=== PATIENT | male | born 1940 | race Caucasian/White ===

== ENCOUNTER 2016-12-28 07:08 | Emergency (ER) | payer MEDICARE ==
[~2016-12-28] VITALS: Ht 182.9 cm; Wt 121.6 kg
[~2016-12-28 07:08] MED LIST: ALPR1TAB6 PO; ASPI-630 PO; GLEEVEC400 MG PO; IBUP200C PO; IMAT100T PO; OLME40TA12 PO; OMEP20TA8 PO; SIMV20TA3 PO; SITA1TAB7 PO; TRAM50TA PO
[2016-12-28 07:26] VITALS: BP 161/85
--- NOTE | 2016-12-28 07:27 | PHYS DOC ---
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 Patient states the pain is intermittent. Patient denies the pain radiating to bilateral lower extremities. Denies any loss of bowel/bladder function. Denies any urgency frequency or dysuria. Patient denies falling. Patient states the pain is worse on movement. Review of Systems Review of Systems Constitutional: Denies fever or chills [] Eyes: Denies change in visual acuity, redness, or eye pain [] HENT: Denies nasal congestion or sore throat [] Respiratory: Denies cough or shortness of breath [] Cardiovascular: No additional information not addressed in HPI [] GI: Denies abdominal pain, nausea, vomiting, bloody stools or diarrhea [] : Denies dysuria or hematuria [] Musculoskeletal: Right low back pain Integument: Denies rash or skin lesions [] Neurologic: Denies headache, focal weakness or sensory changes [] Endocrine: Denies polyuria or polydipsia [] Allergies Allergies Allergies Coded Allergies Type Severity Reaction Last Updated Verified acetaminophen Allergy Intermediate 03/15/15 Yes Physical Exam Physical Exam Constitutional: Well developed, well nourished, no acute distress, non-toxic appearance. [] HENT: Normocephalic, atraumatic, bilateral external ears normal, oropharynx moist, no oral exudates, nose normal. [] Eyes: PERRLA, EOMI, conjunctiva normal, no discharge. [] Neck: Normal range of motion, no tenderness, supple, no stridor. [] Cardiovascular:Heart rate regular rhythm, no murmur [] Lungs & Thorax: Bilateral breath sounds clear to auscultation [] Abdomen: Bowel sounds normal, soft, no tenderness, no masses, no pulsatile masses. [] Skin: Warm, dry, no erythema, no rash. [] Back:diffuse paraspinal muscle tenderness to the right lumbar spine, no midline lumbar spine tenderness, no CVA tenderness. [] Extremities: No tenderness, no cyanosis, no clubbing, ROM intact, no edema. [] Neurologic: Alert and oriented X 3, normal motor function, normal sensory function, no focal deficits noted. [] Psychologic: Affect normal, judgement normal, mood normal. [] Current Patient Data Vital Signs Vital Signs Date Time Temp Pulse Resp B/P (MAP) Pulse Ox O2 Delivery O2 Flow Rate FiO2 12/28/16 07:26 97.9 80 20 161/85 (110) 97 Room Air 97.9 Lab Values Laboratory Tests Test 12/28/16 07:15 Urine Collection Type Unknown Urine Color Yellow Urine Clarity Clear Urine pH 6.5 Urine Specific [place] 1.025 Urine Protein 30 mg/dL (NEG-TRACE) Urine Glucose (UA) Negative mg/dL (NEG) Urine Ketones (Stick) Negative mg/dL (NEG) Urine Blood Negative (NEG) Urine Nitrite Negative (NEG) Urine Bilirubin Negative (NEG) Urine Urobilinogen Dipstick 0.2 mg/dL (0.2 mg/dL) Urine Leukocyte Esterase Negative (NEG) Urine RBC 0 /HPF (0-2) Urine WBC 0 /HPF (0-4) Urine Squamous Epithelial Cells Few /LPF Urine Bacteria 0 /HPF (0-FEW) Urine Mucus Marked /LPF EKG EKG [] Radiology/Procedures Radiology/Procedures []PROCEDURE: LUMBAR SPINE 2-3V Lumbar spine, 3 views, 12/28/2016: History: Back pain, injury There is a mild left convexity lumbar scoliosis. There is mild disc space narrowing at multiple levels with moderate scattered marginal spurs. There are moderate hypertrophic degenerative changes involving the facet joints bilaterally, particularly in the lower lumbar spine. No acute fracture or dislocation is identified. Minimal aortic calcific plaquing is present. IMPRESSION: 1. Moderate multilevel degenerative change. 2. No acute bony abnormality is detected. DICTATED and SIGNED BY: SWATHI RED MD DATE: 12/28/16812 CC: DAVID LOVE MD; AUTUMN BOSS APRN; NON,STAFF ~ Course & Med Decision Making Course & Med Decision Making Pertinent Labs and Imaging studies reviewed. (See chart for details) This is a 76-year-old male patient who presents with right low back pain that began 11/2 weeks ago after lifting something heavy. Urine analysis is negative for infection or blood. Lumbar spine x-rays interpreted by radiology were negative for any acute findings but noted for arthritis. Patient was discharged with Flexeril. Heat recommended to the back. Follow-up with primary care doctor in the next 3-7 days. Provided return precautions and discharged in stable condition. Dragon Disclaimer Dragon Disclaimer This electronic medical record was generated, in whole or in part, using a voice recognition dictation system. Departure Departure Impression: Primary Impression: Acute lumbosacral myofascial strain Disposition: 01 HOME, SELF-CARE Condition: STABLE Referrals: DAVID LOVE MD (PCP) Follow-up in 2-7 days Patient Instructions: Lumbosacral Strain Additional Instructions: You were seen for lumbosacral strain after lifting something heavy. Your x-rays of the lumbar spine were negative for any acute findings, xrays were noted for the arthritis in your back. Follow-up with the primary care doctor. Take the prescribed medicine as needed. Do not drive on Flexeril. Scripts Cyclobenzaprine Hcl (CYCLOBENZAPRINE HCL) 10 Mg Tablet 1 TAB PO TID, #30 TAB Prov: AUTUMN BOSS APRN 12/28/16 AUTUMN BOSS APRN Dec 28, 2016 07:27
[2016-12-28 07:59] LABS: BILIRUBIN,URINE NEGATIVE (NEG); GLUCOSE,URINE NEGATIVE (NEG); NITRITE,URINE NEGATIVE (NEG); PH,URINE 6.5; PROTEIN,URINE 30 mg/dL (NEG-TRACE); UROBILINOGEN,URINE 0.2 mg/dL (0.2 mg/dL)
--- NOTE | 2016-12-28 08:17 | RAD ---
Lumbar spine, 3 views, 12/28/2016: History: Back pain, injury There is a mild left convexity lumbar scoliosis. There is mild disc space narrowing at multiple levels with moderate scattered marginal spurs. There are moderate hypertrophic degenerative changes involving the facet joints bilaterally, particularly in the lower lumbar spine. No acute fracture or dislocation is identified. Minimal aortic calcific plaquing is present. IMPRESSION: 1. Moderate multilevel degenerative change. 2. No acute bony abnormality is detected.
[2016-12-28 08:18] LABS: BACTERIA,URINE 0 /HPF (0-FEW); RBC,URINE 0 /HPF (0-2); SQUAMOUS EPITHELIAL CELL,UR FEW /LPF; WBC,URINE 0 /HPF (0-4)
[2016-12-28] MEDS ORDERED: CYCL10TA2 PO (08:41)
== END 2016-12-28 08:50 | disposition home or self-care (01) ==
LOC: ER 07:08
DX: S39.012A Strain of muscle, fascia and tendon of lower back, initial encounter (principal); E78.00 Pure hypercholesterolemia, unspecified; I10 Essential (primary) hypertension; Z88.8 Allergy status to other drugs, medicaments and biological substances; Z90.49 Acquired absence of other specified parts of digestive tract; X58.XXXA Exposure to other specified factors, initial encounter; Y93.89 Activity, other specified; Y92.89 Other specified places as the place of occurrence of the external cause; Y99.8 Other external cause status
CPT/HCPCS: 72100; 81001; 99285

== ENCOUNTER 2018-01-08 06:35 | Inpatient (IN) | payer MEDICARE ==
[~2018-01-08] VITALS: Ht 182.9 cm; Wt 117.9 kg
[~2018-01-08 06:35] MED LIST changes: +CYCL10TA2 PO; +DILT180C29 PO; +WARF-31 PO
--- NOTE | 2018-01-08 06:53 | PHYS DOC ---
Past Medical History Past Medical History: A-Fib, Anxiety, Diabetes-Type II, GERD, High Cholesterol , Hypertension, Other Additional Past Medical Histor: CML, LEUKEMIA Past Surgical History: Cholecystectomy, Tonsillectomy, Other Additional Past Surgical Histo: I&D; left knee Alcohol Use: None Drug Use: None Adult General Chief Complaint Chief Complaint: CHEST PAIN HPI HPI patient is a 77-year-old male who presents to the emergency department via EMS, for pain in his left scapular/back area "between his shoulder blade and his waist", which began over the past 2 days and worsened over night. He states certain position changes, such as rolling over or sitting up worsen his pain. He states the pain began on his right side or on his right kidney area, and has since moved towards his left. He denies any numbness, weakness, incontinence, or hematuria. He denies any abdominal pain, any chest pain, or shortness of breath, or definite pleuritic pain. The patient was diagnosed with atrial fibrillation about 1 week ago and recently started on warfarin. Other than as stated above, there are no alleviating or exacerbating factors to his symptoms. Review of Systems Review of Systems Constitutional: Denies fever or chills [] Eyes: Denies change in visual acuity, redness, or eye pain [] HENT: Denies nasal congestion or sore throat [] Respiratory: Denies cough or shortness of breath [] Cardiovascular: The patient denies any shortness of breath, chest pain, palpitations, or orthopnea [] GI: Denies abdominal pain, nausea, vomiting, bloody stools or diarrhea [] : Denies dysuria or hematuria [] Musculoskeletal: Denies neck pain or joint pain [] Integument: Denies rash or skin lesions [] Neurologic: Denies headache, focal weakness or sensory changes [] Endocrine: Denies polyuria or polydipsia [] All other systems were reviewed and found to be within normal limits, except as documented in this note. Current Medications Current Medications Current Medications Medications (Trade) Dose Ordered Sig/Dragan Start Time Stop Time Status Last Admin Dose Admin Aspirin (Children'S Aspirin) 162 mg 1X ONCE 01/08/18 09:30 01/08/18 09:31 DC 01/08/18 09:44 162 MG Ceftriaxone Sodium 50 ml @ 100 mls/hr 1X ONCE 8/14/18 09:45 01/08/18 10:14 01/08/18 09:55 100 MLS/HR Diazepam (Valium) 5 mg 1X ONCE 01/08/18 07:00 01/08/18 07:01 DC 01/08/18 07:23 5 MG Info (CONTRAST GIVEN -- Rx MONITORING) 1 each PRN DAILY PRN 01/08/18 07:45 01/10/18 07:44 Iohexol (Omnipaque 300 Mg/ml) 75 ml 1X ONCE 01/08/18 07:45 01/08/18 07:47 DC 01/08/18 07:48 75 ML Morphine Sulfate (Morphine Sulfate) 4 mg 1X ONCE 01/08/18 07:00 01/08/18 07:01 DC 01/08/18 07:30 4 MG Sodium Chloride 1,000 ml @ 1,000 mls/hr Q1H 01/08/18 07:00 01/08/18 07:59 DC 01/08/18 07:23 1,000 MLS/HR Allergies Allergies Allergies Coded Allergies Type Severity Reaction Last Updated Verified acetaminophen Allergy Intermediate 03/15/15 Yes Physical Exam Physical Exam PHYSICAL EXAM: CONSTITUTIONAL: Well developed, well nourished HEAD: normocephalic, atraumatic EENT: PERRL, EOMI. Conjunctivae normal color, sclerae non-icteric; moist mucous membranes. NECK: Supple, non-tender; no meningismus. LUNGS: Lungs CTA, breathing even and unlabored. Normal air movement. HEART: Irregularly irregular rhythm, no murmur CHEST: No deformity; non-tender ABDOMEN: The abdomen is soft, and non-tender, no masses or bruits. EXTREM: Normal ROM; no deformity, no calf tenderness. Normal pulses palpable in all extremities. There is no pedal edema. SKIN: No rash; no diaphoresis NEURO: Alert; normal speech and cognition; CN's grossly intact; strength grossly intact without focal deficit. BACK: No CVA TTP. There is tenderness to palpation to the left thorax, somewhat in the infrascapular area, diffusely, to the musculoskeletal structures of the back. There is no crepitus or focal tenderness. There are no skin rashes in this area. The midline structures of the thoracic and lumbar spine are nontender. Current Patient Data Vital Signs Vital Signs Date Time Temp Pulse Resp B/P (MAP) Pulse Ox O2 Delivery O2 Flow Rate FiO2 01/08/18 08:30 89 19 107/59 (75) 96 01/08/18 08:00 Room Air 01/08/18 06:50 98.3 98.3 Lab Values Laboratory Tests Test 01/08/18 06:50 01/08/18 08:40 White Blood Count 10.3 x10^3/uL (4.0-11.0) Red Blood Count 4.19 x10^6/uL (4.30-5.70) L Hemoglobin 13.5 g/dL (13.0-17.5) Hematocrit 39.7 % (39.0-53.0) Mean Corpuscular Volume 95 fL (79-100) Mean Corpuscular Hemoglobin 32 pg (25-35) Mean Corpuscular Hemoglobin Concent 34 g/dL (31-37) Red Cell Distribution Width 15.0 % (11.5-14.5) H Platelet Count 193 x10^3/uL (140-400) Neutrophils (%) (Auto) 79 % (31-73) H Lymphocytes (%) (Auto) 11 % (24-48) L Monocytes (%) (Auto) 7 % (0-9) Eosinophils (%) (Auto) 2 % (0-3) Basophils (%) (Auto) 1 % (0-3) Neutrophils # (Auto) 8.1 x10^3uL (1.8-7.7) H Lymphocytes # (Auto) 1.1 x10^3/uL (1.0-4.8) Monocytes # (Auto) 0.8 x10^3/uL (0.0-1.1) Eosinophils # (Auto) 0.2 x10^3/uL (0.0-0.7) Basophils # (Auto) 0.1 x10^3/uL (0.0-0.2) Prothrombin Time 24.4 SEC (11.7-14.0) H Prothrombin Time INR 2.3 (0.8-1.1) H Sodium Level 134 mmol/L (136-145) L Potassium Level 4.1 mmol/L (3.5-5.1) Chloride Level 101 mmol/L (98-107) Carbon Dioxide Level 25 mmol/L (21-32) Anion Gap 8 (6-14) Blood Urea Nitrogen 19 mg/dL (8-26) Creatinine 1.4 mg/dL (0.7-1.3) H Estimated GFR (Cockcroft-Gault) 49.3 BUN/Creatinine Ratio 14 (6-20) Glucose Level 187 mg/dL (70-99) H Lactic Acid Level 1.9 mmol/L (0.4-2.0) Calcium Level 8.9 mg/dL (8.5-10.1) Magnesium Level 1.7 mg/dL (1.8-2.4) L Total Bilirubin 0.6 mg/dL (0.2-1.0) Aspartate Amino Transferase (AST) 20 U/L (15-37) Alanine Aminotransferase (ALT) 23 U/L (16-63) Alkaline Phosphatase 73 U/L (46-116) Creatine Kinase 189 U/L (39-308) Creatine Kinase MB (Mass) 3.6 ng/mL (0.0-3.6) Creatine Kinase MB Relative Index 1.9 % (0-4) Troponin I Quantitative < 0.017 ng/mL (0.000-0.055) ZA-Kgx-O-Type Natriuretic Peptide 656 pg/mL (0-449) H Total Protein 7.0 g/dL (6.4-8.2) Albumin 3.8 g/dL (3.4-5.0) Albumin/Globulin Ratio 1.2 (1.0-1.7) Lipase 396 U/L (73-393) H Urine Collection Type Void Urine Color Yellow Urine Clarity Clear Urine pH 6.0 Urine Specific [place] >=1.030 Urine Protein Negative mg/dL (NEG-TRACE) Urine Glucose (UA) Negative mg/dL (NEG) Urine Ketones (Stick) 15 mg/dL (NEG) Urine Blood Negative (NEG) Urine Nitrite Negative (NEG) Urine Bilirubin Negative (NEG) Urine Urobilinogen Dipstick 0.2 mg/dL (0.2 mg/dL) Urine Leukocyte Esterase Negative (NEG) Urine RBC 1-2 /HPF (0-2) Urine WBC 5-10 /HPF (0-4) Urine Squamous Epithelial Cells Few /LPF Urine Amorphous Sediment Present /HPF Urine Bacteria Few /HPF (0-FEW) Urine Mucus Slight /LPF Laboratory Tests 01/08/18 06:50 Laboratory Tests 01/08/18 06:50 EKG EKG [Atrial fibrillation at a rate of 111 beats for minute, leftward axis deviation , right bundle-branch block, there are no acute ischemic ST/T changes. The patient's EKG is unchanged compared to his EKG from 01/02/18.] Radiology/Procedures Radiology/Procedures [PROCEDURE: PORTABLE CHEST 1V EXAM: Portable AP view of the chest DATE: 01/08/2018 6:47 AM INDICATION: LEFT SIDED CHEST PAIN X 2 DAYS COMPARISON: No Prior FINDINGS: The heart is not enlarged. Mediastinal and hilar contours are normal. No focal parenchymal airspace opacity. Blunting of left costophrenic angle likely small left pleural effusion. No pneumothorax. IMPRESSION: 1. Mild blunting of the left costophrenic angle likely small left pleural effusion.] PROCEDURE: CT ANGIOGRAPHY CHEST ABDOMEN Examination: CT angiography of the chest, abdomen without and with IV contrast HISTORY: History of back pain, left scapular pain, abdominal pain for 2 days COMPARISON: None available TECHNIQUE: Axial CT angiographic images of the abdomen and pelvis was performed without and with IV contrast. Coronal and sagittal 3-D MIP reformats are performed. Volumetric 3-D reformats of the aorta was performed. Exposure: One or more of the following individualized dose reduction techniques were utilized for this examination: 1. Automated exposure control 2. Adjustment of the mA and/or kV according to patient size 3. Use of iterative reconstruction technique FINDINGS: The central airways are patent. No radiologically significant mediastinal lymphadenopathy is identified. Diffuse coronary artery calcifications identified. The evaluation of the ascending aorta is limited due to mild motion artifact. No evidence of pericardial effusion. No evidence of aortic dissection identified. There is a 4.5 mm nodule identified in the right middle lobe of the lung abutting the pleura. There is a 6 mm nodule identified in the right lower lobe of the lung abutting the right fissure. Minimal bibasilar lung atelectasis. No evidence of free air identified in the abdomen. Small amount of air identified in the liver could be pneumobilia. The visualized spleen, adrenals grossly appears unremarkable. Cholecystectomy clips identified. The visualized celiac artery, superior mesenteric artery, inferior mesenteric artery, bilateral renal arteries are patent. The visualized pancreas grossly appears unremarkable. The stomach is mildly distended. The small bowel is nondilated. The appendix grossly appears unremarkable. Feces and gas noted in the partially visualized colon. The bilateral kidneys enhance symmetrically. Multiple cystic structures identified in the bilateral kidneys the largest measuring 4 cm in the left kidney and measuring 1 Hounsfield units probably cysts. Mild perinephric fat stranding identified about the bilateral kidneys. Moderate aortic atherosclerosis. Moderate degenerative changes identified in the visualized thoracolumbar spine. IMPRESSION: 1. No evidence of obvious aortic dissection. 2. Small nodules identified in the right middle lobe, right lower lobe of the lung with the largest measuring 6 mm. Follow-up per Fleischner Society guidelines with a follow-up CT in 6-12 months. 3. Coronary artery calcifications. 4. Pneumobilia. 5. Cystic structures identified in the bilateral kidneys likely cysts. There is mild bilateral perinephric fat stranding identified, nonspecific. Course & Med Decision Making Course & Med Decision Making Pertinent Labs and Imaging studies reviewed. (See chart for details) [10:00 AM: The patient's condition remained stable, but he still unable to pull himself up in the bed secondary to his back pain. It seems like it is musculoskeletal, although I cannot definitively rule out a cardiac etiology, given that the pain radiates around towards his left anterior chest wall. The patient will be admitted to the hospital for further evaluation and management.] Dragon Disclaimer Dragon Disclaimer This electronic medical record was generated, in whole or in part, using a voice recognition dictation system. Departure Departure Impression: Primary Impression: Atypical chest pain Disposition: ADMITTED INPATIENT Admitting Physician: Brii Beltran Condition: STABLE Referrals: DAVID LOVE MD (PCP) EFRAÍN PRYOR MD Jan 08, 2018 06:53
[2018-01-08] MEDS ORDERED: IV NORMAL SALINE 1000ML BAG 1,000 ML IV SCH (07:00)
[2018-01-08] MEDS ORDERED: diazePAM 5 MG TABLET PO ONE (07:00)
[2018-01-08] MEDS ORDERED: MORPHINE SULFATE 4 MG/ML VIAL. IV ONE (07:00)
[2018-01-08 07:03] LABS: BASO # 0.1 x10^3/uL (0.0-0.2); BASO % 1 % (0-3); EOS # 0.2 x10^3/uL (0.0-0.7); EOS % 2 % (0-3); HEMATOCRIT 39.7 % (39.0-53.0); HEMOGLOBIN 13.5 g/dL (13.0-17.5); LYMPH # 1.1 x10^3/uL (1.0-4.8); LYMPH % 11 % (24-48); MEAN CORPUSCULAR HEMOGLOBIN 32 pg (25-35); MEAN CORPUSCULAR HGB CONC 34 g/dL (31-37); MEAN CORPUSCULAR VOLUME 95 fL (79-100); MONO # 0.8 x10^3/uL (0.0-1.1); MONO % 7 % (0-9); NEUT # 8.1 x10^3uL (1.8-7.7); NEUT % 79 % (31-73); PLATELET COUNT 193 x10^3/uL (140-400); RED BLOOD COUNT 4.19 x10^6/uL (4.30-5.70); WHITE BLOOD COUNT 10.3 x10^3/uL (4.0-11.0)
[2018-01-08 07:14] LABS: CALCIUM 8.9 mg/dL (8.5-10.1); CREATININE 1.4 mg/dL (0.7-1.3); GFR 49.3; POTASSIUM 4.1 mmol/L (3.5-5.1)
[2018-01-08 07:16] LABS: PROTHROMBIN TIME PATIENT 24.4 SEC (11.7-14.0)
[2018-01-08 07:20] LABS: ALBUMIN 3.8 g/dL (3.4-5.0); ALBUMIN/GLOBULIN RATIO 1.2 (1.0-1.7); MAGNESIUM 1.7 mg/dL (1.8-2.4); TOTAL BILIRUBIN 0.6 mg/dL (0.2-1.0)
[2018-01-08] MEDS ORDERED: IOHEXOL 300 MG/ML 100ML VIAL. IV ONE (07:45)
[2018-01-08] MEDS ORDERED: CONTRAST GIVEN. MC PRN (07:45)
--- NOTE | 2018-01-08 08:29 | RAD ---
Examination: CT angiography of the chest, abdomen without and with IV contrast HISTORY: History of back pain, left scapular pain, abdominal pain for 2 days COMPARISON: None available TECHNIQUE: Axial CT angiographic images of the abdomen and pelvis was performed without and with IV contrast. Coronal and sagittal 3-D MIP reformats are performed. Volumetric 3-D reformats of the aorta was performed. Exposure: One or more of the following individualized dose reduction techniques were utilized for this examination: 1. Automated exposure control 2. Adjustment of the mA and/or kV according to patient size 3. Use of iterative reconstruction technique FINDINGS: The central airways are patent. No radiologically significant mediastinal lymphadenopathy is identified. Diffuse coronary artery calcifications identified. The evaluation of the ascending aorta is limited due to mild motion artifact. No evidence of pericardial effusion. No evidence of aortic dissection identified. There is a 4.5 mm nodule identified in the right middle lobe of the lung abutting the pleura. There is a 6 mm nodule identified in the right lower lobe of the lung abutting the right fissure. Minimal bibasilar lung atelectasis. No evidence of free air identified in the abdomen. Small amount of air identified in the liver could be pneumobilia. The visualized spleen, adrenals grossly appears unremarkable. Cholecystectomy clips identified. The visualized celiac artery, superior mesenteric artery, inferior mesenteric artery, bilateral renal arteries are patent. The visualized pancreas grossly appears unremarkable. The stomach is mildly distended. The small bowel is nondilated. The appendix grossly appears unremarkable. Feces and gas noted in the partially visualized colon. The bilateral kidneys enhance symmetrically. Multiple cystic structures identified in the bilateral kidneys the largest measuring 4 cm in the left kidney and measuring 1 Hounsfield units probably cysts. Mild perinephric fat stranding identified about the bilateral kidneys. Moderate aortic atherosclerosis. Moderate degenerative changes identified in the visualized thoracolumbar spine. IMPRESSION: 1. No evidence of obvious aortic dissection. 2. Small nodules identified in the right middle lobe, right lower lobe of the lung with the largest measuring 6 mm. Follow-up per Fleischner Society guidelines with a follow-up CT in 6-12 months. 3. Coronary artery calcifications. 4. Pneumobilia. 5. Cystic structures identified in the bilateral kidneys likely cysts. There is mild bilateral perinephric fat stranding identified, nonspecific. Electronically signed by: Job Sierra MD (01/08/2018 8:25 AM) [id number]
--- NOTE | 2018-01-08 08:42 | RAD ---
EXAM: Portable AP view of the chest DATE: 01/08/2018 6:47 AM INDICATION: LEFT SIDED CHEST PAIN X 2 DAYS COMPARISON: No Prior FINDINGS: The heart is not enlarged. Mediastinal and hilar contours are normal. No focal parenchymal airspace opacity. Blunting of left costophrenic angle likely small left pleural effusion. No pneumothorax. IMPRESSION: 1. Mild blunting of the left costophrenic angle likely small left pleural effusion. Electronically signed by: Jacob German MD (01/08/2018 8:38 AM) [facility]
--- NOTE | 2018-01-08 08:50 | EKG ---
[facility] [address] [place] [address] Test Date: 2018-01-08 Test Time: 06:40:31 Pat Name: BHARATH HERRERA Department: Room: Gender: M Guest Services Ambassador: : 1940 Requested By: EFRAÍN PRYOR Order Number: [id number] Reading MD: Navid Frazier MD Measurements Intervals [place] Rate: 111 P: RI: QRS: -6 QRSD: 90 T: -9 QT: 342 QTc: 468 Interpretive Statements PROBABLE AFIB RBBB NON-SPECIFIC ST/T CHANGES Electronically Signed On 01-10-2018 15:18:18 CDT by Navid Frazier MD
[2018-01-08 08:52] LABS: BILIRUBIN,URINE NEGATIVE (NEG); CLARITY,URINE CLEAR; COLOR,URINE YELLOW; NITRITE,URINE NEGATIVE (NEG); PROTEIN,URINE NEGATIVE (NEG-TRACE); UROBILINOGEN,URINE 0.2 mg/dL (0.2 mg/dL)
[2018-01-08 09:07] LABS: BACTERIA,URINE FEW /HPF (0-FEW); SQUAMOUS EPITHELIAL CELL,UR FEW /LPF
[2018-01-08 09:08] LABS: AMORPHOUS SEDIMENT,UR PRESENT /HPF
[2018-01-08] MEDS ORDERED: ASPIRIN CHEWABLE 81 MG TABLET. PO ONE (09:30)
[2018-01-08] MEDS ORDERED: MORPHINE SULFATE 2 MG/ML VIAL. IV PRN (10:15)
[2018-01-08] MEDS ORDERED: ONDANSETRON PF 4 MG/2 ML VIAL. IV PRN (10:30)
[2018-01-08] MEDS ORDERED: ONDANSETRON ODT 4 MG TAB.RAPDIS. PO PRN (10:30)
[2018-01-08] MEDS ORDERED: traMADol 50 MG TABLET PO PRN (10:45)
--- NOTE | 2018-01-08 10:56 | PDOC1 ---
History and Physical Date of Admission Date of Admission DATE: 01/08/18 TIME: 10:48 Identification/Chief Complaint Chief Complaint sudden onset of muscle weakness and pain, unable to elevate both legs and walk Source Source: Caregiver, Chart review, Patient History of Present Illness History of Present Illness Very pleasant male, 77-year-old, lives at home with , was here maybe a week ago for new onset A. fib needed rate control and initiation of warfarin. He is doing well in that regard, heart rate and blood pressure are within normal range, INR is 2.3. But he comes in with a totally unrelated problem. About 2 days' history acute onset of muscle aches and pains, interscapular area, muscle aches or pains are moving in location, he mentions then it started right lower quadrant right flank area then now is most tender some on the left flank area. Unable to lift bilateral lower extremity, or at least with very great difficulty against gravity. Now in the last couple days has been walking with crutches, when he did not used to do that a week ago. Upper muscle manual testing seems to be okay. No slurred speech, good shoulder shrug. DTRs +2. He Cannot help but wonder if this is a side effect of his new heart rate controlling agents. But I assured him it is not. 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 All workup is negative at ER. Creatinine 1.4. History of diabetes. CK is normal. Lipase mildly elevated 300s. I will admit, investigate, concerning for recent bilateral lower extremity weakness, and now the need for crutches to ambulate, DENIES RECENT FALL OR TRAUMA Constipation though - last BM 4-5 days ago. No history of hypothyroidism. We'll check a sedimentation rate, TSH, get rheumatology input likewise. Past Medical History Cardiovascular: AFIB, HTN Heme/Onc: Cancer Endocrine: Diabetes Past Surgical History Past Surgical History: Other (left foot surgery when he was a kid from trauma) Family History Family History: No Significant Social History Smoke: No ALCOHOL: rare Drugs: None Current Problem List Problem List Problems Medical Problems: (1) Atypical chest pain Status: Acute Current Medications Current Medications Current Medications Sodium Chloride 1,000 ml @ 1,000 mls/hr Q1H IV Last administered on 01/08/18at 07:23; Start 01/08/18 at 07:00; Stop 01/08/18 at 07:59; Status DC Morphine Sulfate (Morphine Sulfate) 4 mg 1X ONCE IV Last administered on at 07:30; Start 01/08/18 at 07:00; Stop 01/08/18 at 07:01; Status DC Diazepam (Valium) 5 mg 1X ONCE PO Last administered on 01/08/18at 07:23; Start 01/08/18 at 07:00; Stop 01/08/18 at 07:01; Status DC Iohexol (Omnipaque 300 Mg/ml) 75 ml 1X ONCE IV Last administered on 01/08/18at 07:48; Start 01/08/18 at 07:45; Stop 01/08/18 at 07:47; Status DC Info (CONTRAST GIVEN -- Rx MONITORING) 1 each PRN DAILY PRN MC SEE COMMENTS; Start 01/08/18 at 07:45; Stop 01/10/18 at 07:44 Aspirin (Children'S Aspirin) 162 mg 1X ONCE PO Last administered on 01/08/18at 09:44; Start 01/08/18 at 09:30; Stop 01/08/18 at 09:31; Status DC Ceftriaxone Sodium 50 ml @ 100 mls/hr 1X ONCE IV Last administered on at 09:55; Start 01/08/18 at 09:45; Stop 01/08/18 at 10:14; Status DC Morphine Sulfate (Morphine Sulfate) 4 mg PRN Q2HR PRN IV PAIN; Start 01/08/18 at 10:15; Stop 01/09/18 at 10:14 Ondansetron HCl (Zofran) 4 mg PRN Q6HRS PRN IV NAUSEA/VOMITING; Start 01/08/18 at 10:30 Ondansetron HCl (Zofran Odt) 4 mg PRN Q6HRS PRN PO NAUSEA/VOMITING; Start 01/08 at 10:30 Alprazolam (Xanax) 1 mg DAILY PO ; Start 01/09/18 at 09:00; Status UNV Aspirin (Children'S Aspirin) 81 mg DAILY PO ; Start 01/09/18 at 09:00; Status UNV Cyclobenzaprine HCl (Flexeril) 10 mg TID PO ; Start 01/08/18 at 14:00; Status UNV Tramadol HCl (Ultram) 50 mg Q6HRS PRN PO pain; Start 01/08/18 at 10:45; Status UNV Non-Formulary Medication (Diltiazem Hcl (Diltiazem 24HR Cd)) 180 mg DAILY PO ; Start 01/09/18 at 09:00; Status UNV Non-Formulary Medication (Imatinib Mesylate (Gleevec)) 200 mg DAILY07 PO ; Start 01/09/18 at 07:00; Status UNV Non-Formulary Medication (Imatinib Mesylate (Gleevec)) 400 mg QHS PO ; Start at 21:00; Status UNV Non-Formulary Medication (Omeprazole ) 20 mg DAILY06 PO ; Start 01/09/18 at 06: 00; Status UNV Non-Formulary Medication (Simvastatin ) 20 mg DAILY PO ; Start 01/09/18 at 09:00 ; Status UNV Warfarin Sodium (Coumadin Per Pharmacy) 1 each PRN DAILY PRN MC SEE COMMENTS; Start 01/08/18 at 10:45; Status UNV Active Scripts Active Diltiazem 24HR Cd (Diltiazem Hcl) 180 Mg Cap.er.24h 180 Mg PO DAILY 30 Days Cyclobenzaprine Hcl 10 Mg Tablet 1 Tab PO TID Reported Warfarin Sodium 5 Mg Tablet 1 Tab PO DAILY Aspirin 81 Mg Tab.chew 81 Mg PO DAILY Alprazolam 1 Mg Tablet 1 Mg PO DAILY Tramadol Hcl 50 Mg Tablet 50-100 Mg PO PRN Janumet 50-500 Mg Tablet (Sitagliptin Phos/Metformin Hcl) 1 Each Tablet 1 Each PO Simvastatin 20 Mg Tablet 20 Mg PO DAILY Omeprazole 20 Mg Tablet.dr 20 Mg PO DAILY06 Gleevec (Imatinib Mesylate) 400 Mg Tablet 400 Mg PO QHS Gleevec (Imatinib Mesylate) 100 Mg Tablet 200 Mg PO DAILY07 Allergies Allergies: Coded Allergies: acetaminophen (Verified Allergy, Intermediate, 03/15/15) ROS Review of System As per history of present illness, the rest of ROS negative Physical Exam General: Alert, Oriented X3, Cooperative, No acute distress HEENT: Atraumatic, PERRLA, EOMI Lungs: Clear to auscultation, Normal air movement Heart: S1S2, no thrills, no rubs, no gallops, no murmurs, irregularly irregular Cardiovascular: S1, S2 Abdomen: Normal bowel sounds, Soft, No tenderness, No hepatosplenomegaly, No masses Male Genitals Exam: normal genitalia, normal prostate Rectal Exam: not examined PELVIC: Nml ext genitalia Extremities: No clubbing, No cyanosis, No edema, Normal pulses, No tenderness/ swelling Skin: No rashes, No breakdown, No significant lesion Neuro: Normal gait, Normal speech, Normal tone, Sensation intact, Cranial nerves 3-12 NL, Reflexes 2+, Other (MMT testing 5 out of 5 in upper EXT, 2 out of 5 on bilateral lower extremity) Vitals Vitals Vital Signs Date Time Temp Pulse Resp B/P (MAP) Pulse Ox O2 Delivery O2 Flow Rate FiO2 01/08/18 10:00 58 92/54 (67) 98 01/08/18 08:30 19 01/08/18 08:00 Room Air 01/08/18 06:50 98.3 98.3 Labs Labs Laboratory Tests Test 01/08/18 06:50 01/08/18 08:40 White Blood Count 10.3 x10^3/uL (4.0-11.0) Red Blood Count 4.19 x10^6/uL (4.30-5.70) Hemoglobin 13.5 g/dL (13.0-17.5) Hematocrit 39.7 % (39.0-53.0) Mean Corpuscular Volume 95 fL (79-100) Mean Corpuscular Hemoglobin 32 pg (25-35) Mean Corpuscular Hemoglobin Concent 34 g/dL (31-37) Red Cell Distribution Width 15.0 % (11.5-14.5) Platelet Count 193 x10^3/uL (140-400) Neutrophils (%) (Auto) 79 % (31-73) Lymphocytes (%) (Auto) 11 % (24-48) Monocytes (%) (Auto) 7 % (0-9) Eosinophils (%) (Auto) 2 % (0-3) Basophils (%) (Auto) 1 % (0-3) Neutrophils # (Auto) 8.1 x10^3uL (1.8-7.7) Lymphocytes # (Auto) 1.1 x10^3/uL (1.0-4.8) Monocytes # (Auto) 0.8 x10^3/uL (0.0-1.1) Eosinophils # (Auto) 0.2 x10^3/uL (0.0-0.7) Basophils # (Auto) 0.1 x10^3/uL (0.0-0.2) Prothrombin Time 24.4 SEC (11.7-14.0) Prothromb Time International Ratio 2.3 (0.8-1.1) Sodium Level 134 mmol/L (136-145) Potassium Level 4.1 mmol/L (3.5-5.1) Chloride Level 101 mmol/L (98-107) Carbon Dioxide Level 25 mmol/L (21-32) Anion Gap 8 (6-14) Blood Urea Nitrogen 19 mg/dL (8-26) Creatinine 1.4 mg/dL (0.7-1.3) Estimated GFR (Cockcroft-Gault) 49.3 BUN/Creatinine Ratio 14 (6-20) Glucose Level 187 mg/dL (70-99) Lactic Acid Level 1.9 mmol/L (0.4-2.0) Calcium Level 8.9 mg/dL (8.5-10.1) Magnesium Level 1.7 mg/dL (1.8-2.4) Total Bilirubin 0.6 mg/dL (0.2-1.0) Aspartate Amino Transf (AST/SGOT) 20 U/L (15-37) Alanine Aminotransferase (ALT/SGPT) 23 U/L (16-63) Alkaline Phosphatase 73 U/L (46-116) Creatine Kinase 189 U/L (39-308) Creatine Kinase MB (Mass) 3.6 ng/mL (0.0-3.6) Creatine Kinase MB Relative Index 1.9 % (0-4) Troponin I Quantitative < 0.017 ng/mL (0.000-0.055) FB-Bbj-X-Type Natriuretic Peptide 656 pg/mL (0-449) Total Protein 7.0 g/dL (6.4-8.2) Albumin 3.8 g/dL (3.4-5.0) Albumin/Globulin Ratio 1.2 (1.0-1.7) Lipase 396 U/L (73-393) Urine Collection Type Void Urine Color Yellow Urine Clarity Clear Urine pH 6.0 Urine Specific Richardson >=1.030 Urine Protein Negative mg/dL (NEG-TRACE) Urine Glucose (UA) Negative mg/dL (NEG) Urine Ketones (Stick) 15 mg/dL (NEG) Urine Blood Negative (NEG) Urine Nitrite Negative (NEG) Urine Bilirubin Negative (NEG) Urine Urobilinogen Dipstick 0.2 mg/dL (0.2 mg/dL) Urine Leukocyte Esterase Negative (NEG) Urine RBC 1-2 /HPF (0-2) Urine WBC 5-10 /HPF (0-4) Urine Squamous Epithelial Cells Few /LPF Urine Amorphous Sediment Present /HPF Urine Bacteria Few /HPF (0-FEW) Urine Mucus Slight /LPF Laboratory Tests Test 01/08/18 06:50 01/08/18 08:40 White Blood Count 10.3 x10^3/uL (4.0-11.0) Red Blood Count 4.19 x10^6/uL (4.30-5.70) Hemoglobin 13.5 g/dL (13.0-17.5) Hematocrit 39.7 % (39.0-53.0) Mean Corpuscular Volume 95 fL (79-100) Mean Corpuscular Hemoglobin 32 pg (25-35) Mean Corpuscular Hemoglobin Concent 34 g/dL (31-37) Red Cell Distribution Width 15.0 % (11.5-14.5) Platelet Count 193 x10^3/uL (140-400) Neutrophils (%) (Auto) 79 % (31-73) Lymphocytes (%) (Auto) 11 % (24-48) Monocytes (%) (Auto) 7 % (0-9) Eosinophils (%) (Auto) 2 % (0-3) Basophils (%) (Auto) 1 % (0-3) Neutrophils # (Auto) 8.1 x10^3uL (1.8-7.7) Lymphocytes # (Auto) 1.1 x10^3/uL (1.0-4.8) Monocytes # (Auto) 0.8 x10^3/uL (0.0-1.1) Eosinophils # (Auto) 0.2 x10^3/uL (0.0-0.7) Basophils # (Auto) 0.1 x10^3/uL (0.0-0.2) Prothrombin Time 24.4 SEC (11.7-14.0) Prothromb Time International Ratio 2.3 (0.8-1.1) Sodium Level 134 mmol/L (136-145) Potassium Level 4.1 mmol/L (3.5-5.1) Chloride Level 101 mmol/L (98-107) Carbon Dioxide Level 25 mmol/L (21-32) Anion Gap 8 (6-14) Blood Urea Nitrogen 19 mg/dL (8-26) Creatinine 1.4 mg/dL (0.7-1.3) Estimated GFR (Cockcroft-Gault) 49.3 BUN/Creatinine Ratio 14 (6-20) Glucose Level 187 mg/dL (70-99) Lactic Acid Level 1.9 mmol/L (0.4-2.0) Calcium Level 8.9 mg/dL (8.5-10.1) Magnesium Level 1.7 mg/dL (1.8-2.4) Total Bilirubin 0.6 mg/dL (0.2-1.0) Aspartate Amino Transf (AST/SGOT) 20 U/L (15-37) Alanine Aminotransferase (ALT/SGPT) 23 U/L (16-63) Alkaline Phosphatase 73 U/L (46-116) Creatine Kinase 189 U/L (39-308) Creatine Kinase MB (Mass) 3.6 ng/mL (0.0-3.6) Creatine Kinase MB Relative Index 1.9 % (0-4) Troponin I Quantitative < 0.017 ng/mL (0.000-0.055) DX-Kua-M-Type Natriuretic Peptide 656 pg/mL (0-449) Total Protein 7.0 g/dL (6.4-8.2) Albumin 3.8 g/dL (3.4-5.0) Albumin/Globulin Ratio 1.2 (1.0-1.7) Lipase 396 U/L (73-393) Urine Collection Type Void Urine Color Yellow Urine Clarity Clear Urine pH 6.0 Urine Specific Richardson >=1.030 Urine Protein Negative mg/dL (NEG-TRACE) Urine Glucose (UA) Negative mg/dL (NEG) Urine Ketones (Stick) 15 mg/dL (NEG) Urine Blood Negative (NEG) Urine Nitrite Negative (NEG) Urine Bilirubin Negative (NEG) Urine Urobilinogen Dipstick 0.2 mg/dL (0.2 mg/dL) Urine Leukocyte Esterase Negative (NEG) Urine RBC 1-2 /HPF (0-2) Urine WBC 5-10 /HPF (0-4) Urine Squamous Epithelial Cells Few /LPF Urine Amorphous Sediment Present /HPF Urine Bacteria Few /HPF (0-FEW) Urine Mucus Slight /LPF VTE Prophylaxis Ordered VTE Prophylaxis Devices: Yes VTE Pharmacological Prophylaxi: Yes Assessment/Plan Assessment/Plan Sudden onset of bilateral lower extremity weakness, muscle aches and pains, moves in location WHat Concerns me is the acute onset of bilateral lower extremity weakness that he cannot elevate against gravity. We'll check an MRI of the lumbosacral spine consult physiatry. Check a TSH and a sedimentation rate Also include rheumatology consult CPK is normal Recent A. fib, now rate controlled, on warfarin with therapeutic INR Hypertension controlled CK D Plan: Consult room and physiatry, check sedimentation rate and TSH Resume home meds, warfarin per protocol I did hold resuming metformin because of creatinine 1.4, sliding scale insulin high-dose Further conditions pending course Seen at ER My plan of care discussed with him- He agrees Add RICH DAMON MD Jan 08, 2018 10:56
[2018-01-08] MEDS ORDERED: MAGNESIUM HYDROXIDE 2,400 MG/30 ML ORAL.SUSP. PO ONE (12:00)
[2018-01-08] MEDS: PANTOPRAZOLE 40 MG TABLET.DR. PO SCH (12:00)
[2018-01-08] MEDS ORDERED: ALPRAZolam 1 MG TABLET PO SCH ×2 (12:00→21:00)
[2018-01-08] MEDS ORDERED: ASPIRIN CHEWABLE 81 MG TABLET. PO SCH (12:00)
[2018-01-08] MEDS ORDERED: POLYETHYLENE GLYCOL 3350 17 GM PACKET. PO ONE (12:00)
--- NOTE | 2018-01-08 12:55 | RAD ---
MRI of the lumbar spine without contrast 01/08/2018 CLINICAL HISTORY: Low back pain with acute onset of bilateral leg weakness and incontinence. TECHNIQUE: Unenhanced T1-weighted, T2-weighted and inversion recovery sagittal and T1-weighted and T2-weighted axial images of the lumbar spine were obtained. FINDINGS: Comparison is made to radiographs of the lumbar spine dated 12/28/2016. Mild S-shaped curvature of the thoracolumbar spine is seen. Degenerative signal changes are seen involving all of the disks of the lumbar spine. Degenerative signal changes are seen within the marrow surrounding these discs. Loss of height of the L1-2, L3-4 and L4-5 discs is noted. The conus medullaris is normal in position and signal characteristics. A 1.8 cm rounded high signal intensity lesion is seen involving the upper pole of the right kidney on the T2-weighted images. This likely represents a cyst. There is no MRI evidence of a compression fracture involving the lumbar vertebrae or insufficiency fracture involving the sacrum. At the T12-L1 disc space there is a mild generalized disc bulge. Superimposed on this disc bulge is a focal central disc protrusion which extrudes slightly superiorly and inferiorly. It measures 3.5 mm in AP diameter. Degenerative changes are seen involving the facet joints bilaterally. These findings result in mild central spinal canal stenosis. No neural foraminal stenosis is seen. At the L1-2 disc space there is a moderate generalized disc bulge. This is eccentric to the right. Superimposed on this disc bulge is a right paracentral focal disc protrusion which extrudes inferiorly. It measures 4 mm in AP diameter. Degenerative changes are seen involving the facet joints bilaterally. There is mild ligamentum flavum hypertrophy bilaterally. There is prominence of the posterior epidural fat. There are small facet joint effusions. These findings when combined result in mild to moderate central spinal canal stenosis. No neural foraminal stenosis is seen. At the L2-3 disc space there is a moderate generalized disc bulge. Degenerative changes are seen involving the facet joints bilaterally. There is mild to moderate ligamentum flavum hypertrophy bilaterally. There is prominence of the posterior epidural fat. These findings when combined result in mild central spinal canal stenosis. No neural foraminal stenosis is seen. At the L3-4 disc space there is a moderate generalized disc bulge. Superimposed on this disc bulge is a focal central disc herniation. This extrudes superiorly as a free disc fragment. The extruded disc fragment measures 2.5 x 1.4 x 1.0 cm in craniocaudal, transverse and AP dimensions. Degenerative changes are seen involving the facet joints bilaterally. There is moderate to severe ligamentum flavum hypertrophy bilaterally. There are small to moderate-sized facet joint effusions. These findings when combined result in moderate to severe central spinal canal stenosis. Moderate to severe bilateral neural foraminal stenosis is seen. The extruded disc fragment extends to the superior L3 level. This deforms the anterior surface of the thecal sac, left greater than right and contributes to moderate to severe left greater than right central spinal canal stenosis throughout the majority of the L3 level. At the L4-5 disc space there is a mild generalized disc bulge. Degenerative changes are seen involving the facet joints bilaterally. There is mild ligamentum flavum hypertrophy bilaterally. These findings when combined do not result in significant central spinal canal or neural foraminal stenosis. At the L5-S1 disc space there is mild to moderate generalized disc bulge. Degenerative changes are seen involving the facet joints bilaterally. These findings when combined do not result in significant central spinal canal or neural foraminal stenosis. IMPRESSION: The changes of degenerative disc disease are seen throughout the lumbar spine. These findings result in mild central spinal canal stenosis at T12-L1, mild to moderate central spinal canal stenosis at L1-2, mild central spinal canal stenosis at L2-3 and moderate to severe central spinal canal stenosis at L3-4. Moderate to severe bilateral neural foraminal stenosis is seen at L3-4. At the L3-4 disc space a large central extruded free disc fragment is seen. This deforms the anterior aspect of the thecal sac and results in moderate to severe left greater than right central spinal canal stenosis throughout the majority of the L3 level. Electronically signed by: Darryn Newman MD (01/08/2018 12:51 PM) [facility]
[2018-01-08] MEDS ORDERED: oxyCODONE IR 5 MG TABLET PO PRN (13:30)
[2018-01-08] MEDS ORDERED: SODIUM PHOSPHATES 19/7GM 133 ML ENEMA. PR PRN (13:45)
[2018-01-08] MEDS ORDERED: BISACODYL 10 MG SUPP.RECT. PR PRN (13:45)
[2018-01-08] MEDS ORDERED: CYCLOBENZAPRINE 10 MG TABLET. PO SCH (14:00)
[2018-01-08 14:08] VITALS: BP 116/67
[2018-01-08] MEDS: methylPREDNISolone 4 MG TABLET. PO SCH ×4 (14:31→20:48)
[2018-01-08] MEDS: LIDOCAINE (700MG/PATCH) PATCH. TD SCH (14:32)
[2018-01-08] MEDS: DOCUSATE SODIUM 100 MG CAPSULE. PO SCH (14:33)
[2018-01-08] MEDS ORDERED: WARFARIN 5 MG TABLET. PO ONE (16:00)
[2018-01-08 19:30] VITALS: BP 126/63
[2018-01-08] MEDS: SENNOSIDES/DOCUSATE 8.6/50MG TABLET. PO SCH (20:48)
[2018-01-08] MEDS ORDERED: SIMVASTATIN 20 MG TABLET PO SCH (21:00)
[2018-01-08 23:25] VITALS: BP 119/71
[2018-01-09 03:20] VITALS: BP 121/64
--- NOTE | 2018-01-09 06:01 | CONS ---
DATE OF CONSULTATION: 01/08/2018 ATTENDING PHYSICIAN: Dr. Lee. I saw him at the request of Dr. Beltran for rehab evaluation. HISTORY OF PRESENT ILLNESS: This is a 77-year-old right-handed male, retired. 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 The patient had new onset atrial fibrillation about a week ago. He was started on Coumadin. 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 Since that evening, he started having mid back area pain, initially on the right side, but right now, concentrated more on the left side, and he denies any radiation of pain to the extremities or any tingling and numbness sensation in the extremities, but he is having difficulty to get up and walk. Has to use the crutches to get around. The patient denies any trouble with his bladder control. He admits some constipation. The patient had history of chronic myelocytic leukemia, on Gleevec for about 18 years, also diet-controlled diabetes mellitus. The patient was noted with creatinine of 1.4. Lipase mildly elevated to 300. He denies any chronic back pain. The patient is constipated. The patient also with known hypertension. The patient stairs to go to the basement where washer and dryer are located, ramp for stairs in front of the house. His walks with a roller walker, but when they go out, he basically uses a wheelchair for her. The patient has not used any assistive devices until his back pain started on 01/04/2018. ALLERGIES: THE PATIENT IS KNOWN ALLERGIC TO ACETAMINOPHEN. He had CTA of the chest and abdomen, which revealed small identified nodules in the right middle lobe and right lower lobe measuring about 6 cm, coronary artery calcification, pneumobilia, cystic structures identified in the bilateral kidneys, likely cysts, mild bilateral perinephric fat stranding identified, nonspecific; moderate degenerative changes in the visualized thoracolumbar spine. Chest x-ray revealed mild blunting of left costophrenic angle, likely small left pleural effusion. Lumbar spine MRI scan done revealed degenerative disk disease throughout the lumbar spine resulting in mild central spinal canal stenosis at T12-L1, mild to moderate central canal stenosis at L1-L2, mild central canal stenosis at L2-L3, moderate to severe central spinal canal stenosis at L3-L4 and moderate to severe bilateral neural foraminal stenosis seen at L3-L4. At L3-L4 disk space, there is a large central extruded free disk fragment. This deforms the anterior aspect of the thecal sac and results in moderate to severe left greater than right central canal stenosis throughout the majority of L3 level. PHYSICAL EXAMINATION: Today revealed an elderly male. He is alert, oriented to time, place, person and circumstance and follows commands appropriately. The patient had significant pain on attempts at rolling from side to side. Straight leg raising test is negative bilaterally. He had tenderness to palpation over left lower thoracic paraspinal muscles. He had some limitation of external rotation at left hip and crepitus on range of motion of left knee joint with mild knee joint effusion. He had absent knee and ankle jerks. He had overall 5/5 grade muscle strength with relatively increased weakness in toe dorsiflexor muscles bilaterally. He seemed to have equal perception of touch and pinprick sensation bilaterally. He requires help with rolling from side to side. I have not tested his transfers or ambulation skills at this time. No obvious cognitive or communication deficits noted at this time. ASSESSMENT: 1. Left lower thoracic paraspinal muscle strain, probably the way he moved on the EKG table on 01/04/2018 without any clinical evidence of thoracic radiculopathy. 2. 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 The patient with known hypertension, atrial fibrillation on anticoagulation. RECOMMENDATION: To try physical modalities, agree with physical therapy, to start him on Medrol Dosepak and get him up using back support. Dr. Beltran, appreciate asking me to participate in the care of this interesting patient. I will be glad to follow him with you as needed for his rehabilitation, to consider neurosurgical consult if he is having radicular pain. DELORES ADRIAN MD DR: SAGRARIO/jez JOB#: [id number] / [id number] DAVID Atkins MD
[2018-01-09 07:00] VITALS: BP 131/77
[2018-01-09] MEDS ORDERED: IMATINIB MESYLATE 200 MG PO SCH (07:00)
[2018-01-09] MEDS: LIDOCAINE (700MG/PATCH) PATCH. TD SCH (07:47)
[2018-01-09] MEDS: DOCUSATE SODIUM 100 MG CAPSULE. PO SCH (07:48)
[2018-01-09] MEDS: SENNOSIDES/DOCUSATE 8.6/50MG TABLET. PO SCH (07:48)
[2018-01-09] MEDS: methylPREDNISolone 4 MG TABLET. PO SCH ×3 (07:49→16:59)
[2018-01-09] MEDS: PANTOPRAZOLE 40 MG TABLET.DR. PO SCH (07:50)
[2018-01-09] MEDS ORDERED: BISACODYL 5 MG TABLET.DR. PO SCH (09:00)
[2018-01-09] MEDS ORDERED: IMATINIB MESYLATE PO SCH (09:00)
[2018-01-09] MEDS ORDERED: POLYETHYLENE GLYCOL 3350 17 GM PACKET. PO SCH (09:00)
--- NOTE | 2018-01-09 09:19 | PDOC ---
PROGRESS NOTES Subjective Subjective He feels much better this AM. Objective Objective Vital Signs Date Time Temp Pulse Resp B/P (MAP) Pulse Ox O2 Delivery O2 Flow Rate FiO2 01/09/18 07:55 Room Air 01/09/18 07:50 107 131/77 01/09/18 07:00 97.5 18 94 97.5 Intake and Output 01/09/18 07:00 Intake Total 1120 ml Output Total 400 ml Balance 720 ml Intake Oral 1120 ml Output Urine Total 400 ml # Voids 1 Physical Exam Physical Exam He is alert and can rise his both lower extremities without any pain which he states he could not do when he came in yesterday. He still had tenderness to palpation over left lower thoracic paraspinal muscles and painfully limited thoraco lumbar spine ROM. No change noted with his neurological examination.He is voiding well. He had a bowel movement. He got up and walker with roller walker with minimal back pain. He admits some help also from abdominal binder. Assessment Assessment Problems Medical Problems: (1) Atypical chest pain Status: Acute Plan Plan of [facility] with out patient follow up when medically stable,later on today or tomorrow and I have advised him in home exercises and proper body mechanics and avoid any activity that irritates his back. Comment Review of Relevant I have reviewed the following items evelia (where applicable) has been applied. Labs Laboratory Tests Test 01/08/18 06:50 01/08/18 08:40 01/08/18 12:55 01/08/18 15:45 White Blood Count 10.3 x10^3/uL (4.0-11.0) Red Blood Count 4.19 x10^6/uL (4.30-5.70) Hemoglobin 13.5 g/dL (13.0-17.5) Hematocrit 39.7 % (39.0-53.0) Mean Corpuscular Volume 95 fL (79-100) Mean Corpuscular Hemoglobin 32 pg (25-35) Mean Corpuscular Hemoglobin Concent 34 g/dL (31-37) Red Cell Distribution Width 15.0 % (11.5-14.5) Platelet Count 193 x10^3/uL (140-400) Neutrophils (%) (Auto) 79 % (31-73) Lymphocytes (%) (Auto) 11 % (24-48) Monocytes (%) (Auto) 7 % (0-9) Eosinophils (%) (Auto) 2 % (0-3) Basophils (%) (Auto) 1 % (0-3) Neutrophils # (Auto) 8.1 x10^3uL (1.8-7.7) Lymphocytes # (Auto) 1.1 x10^3/uL (1.0-4.8) Monocytes # (Auto) 0.8 x10^3/uL (0.0-1.1) Eosinophils # (Auto) 0.2 x10^3/uL (0.0-0.7) Basophils # (Auto) 0.1 x10^3/uL (0.0-0.2) Erythrocyte Sedimentation Rate 22 (0-15) Prothrombin Time 24.4 SEC (11.7-14.0) Prothromb Time International Ratio 2.3 (0.8-1.1) Sodium Level 134 mmol/L (136-145) Potassium Level 4.1 mmol/L (3.5-5.1) Chloride Level 101 mmol/L (98-107) Carbon Dioxide Level 25 mmol/L (21-32) Anion Gap 8 (6-14) Blood Urea Nitrogen 19 mg/dL (8-26) Creatinine 1.4 mg/dL (0.7-1.3) Estimated GFR (Cockcroft-Gault) 49.3 BUN/Creatinine Ratio 14 (6-20) Glucose Level 187 mg/dL (70-99) Lactic Acid Level 1.9 mmol/L (0.4-2.0) Calcium Level 8.9 mg/dL (8.5-10.1) Magnesium Level 1.7 mg/dL (1.8-2.4) Total Bilirubin 0.6 mg/dL (0.2-1.0) Aspartate Amino Transf (AST/SGOT) 20 U/L (15-37) Alanine Aminotransferase (ALT/SGPT) 23 U/L (16-63) Alkaline Phosphatase 73 U/L (46-116) Creatine Kinase 189 U/L (39-308) Creatine Kinase MB (Mass) 3.6 ng/mL (0.0-3.6) Creatine Kinase MB Relative Index 1.9 % (0-4) Troponin I Quantitative < 0.017 ng/mL (0.000-0.055) < 0.017 ng/mL (0.000-0.055) < 0.017 ng/mL (0.000-0.055) SH-Ozm-W-Type Natriuretic Peptide 656 pg/mL (0-449) Total Protein 7.0 g/dL (6.4-8.2) Albumin 3.8 g/dL (3.4-5.0) Albumin/Globulin Ratio 1.2 (1.0-1.7) Lipase 396 U/L (73-393) Thyroid Stimulating Hormone (TSH) 0.837 uIU/mL (0.358-3.74) Urine Collection Type Void Urine Color Yellow Urine Clarity Clear Urine pH 6.0 Urine Specific [place] >=1.030 Urine Protein Negative mg/dL (NEG-TRACE) Urine Glucose (UA) Negative mg/dL (NEG) Urine Ketones (Stick) 15 mg/dL (NEG) Urine Blood Negative (NEG) Urine Nitrite Negative (NEG) Urine Bilirubin Negative (NEG) Urine Urobilinogen Dipstick 0.2 mg/dL (0.2 mg/dL) Urine Leukocyte Esterase Negative (NEG) Urine RBC 1-2 /HPF (0-2) Urine WBC 5-10 /HPF (0-4) Urine Squamous Epithelial Cells Few /LPF Urine Amorphous Sediment Present /HPF Urine Bacteria Few /HPF (0-FEW) Urine Mucus Slight /LPF Test 01/09/18 03:55 Prothrombin Time 27.0 SEC (11.7-14.0) Prothromb Time International Ratio 2.6 (0.8-1.1) Laboratory Tests Test 01/08/18 12:55 01/08/18 15:45 01/09/18 03:55 Troponin I Quantitative < 0.017 ng/mL (0.000-0.055) < 0.017 ng/mL (0.000-0.055) Prothrombin Time 27.0 SEC (11.7-14.0) Prothromb Time International Ratio 2.6 (0.8-1.1) Medications Current Medications Sodium Chloride 1,000 ml @ 1,000 mls/hr Q1H IV Last administered on 01/08/18at 07:23; Start 01/08/18 at 07:00; Stop 01/08/18 at 07:59; Status DC Morphine Sulfate (Morphine Sulfate) 4 mg 1X ONCE IV Last administered on at 07:30; Start 01/08/18 at 07:00; Stop 01/08/18 at 07:01; Status DC Diazepam (Valium) 5 mg 1X ONCE PO Last administered on 01/08/18at 07:23; Start 01/08/18 at 07:00; Stop 01/08/18 at 07:01; Status DC Iohexol (Omnipaque 300 Mg/ml) 75 ml 1X ONCE IV Last administered on 01/08/18at 07:48; Start 01/08/18 at 07:45; Stop 01/08/18 at 07:47; Status DC Info (CONTRAST GIVEN -- Rx MONITORING) 1 each PRN DAILY PRN MC SEE COMMENTS; Start 01/08/18 at 07:45; Stop 01/10/18 at 07:44 Aspirin (Children'S Aspirin) 162 mg 1X ONCE PO Last administered on 01/08/18at 09:44; Start 01/08/18 at 09:30; Stop 01/08/18 at 09:31; Status DC Ceftriaxone Sodium 50 ml @ 100 mls/hr 1X ONCE IV Last administered on at 09:55; Start 01/08/18 at 09:45; Stop 01/08/18 at 10:14; Status DC Morphine Sulfate (Morphine Sulfate) 4 mg PRN Q2HR PRN IV PAIN; Start 01/08/18 at 10:15; Stop 01/09/18 at 10:14 Ondansetron HCl (Zofran) 4 mg PRN Q6HRS PRN IV NAUSEA/VOMITING; Start 01/08/18 at 10:30 Ondansetron HCl (Zofran Odt) 4 mg PRN Q6HRS PRN PO NAUSEA/VOMITING; Start 01/08 at 10:30 Alprazolam (Xanax) 1 mg DAILY PO ; Start 01/08/18 at 12:00; Stop 01/08/18 at 15: 00; Status DC Aspirin (Children'S Aspirin) 81 mg DAILY PO ; Start 01/08/18 at 12:00; Stop at 19:17; Status DC Cyclobenzaprine HCl (Flexeril) 10 mg TID PO ; Start 01/08/18 at 14:00; Stop at 19:17; Status DC Tramadol HCl (Ultram) 50 mg PRN Q6HRS PRN PO MILD PAIN; Start 01/08/18 at 10:45 Diltiazem HCl (Cardizem 24hr Cd) 180 mg DAILY PO Last administered on at 07:50; Start 01/08/18 at 12:00 Non-Formulary Medication (Imatinib Mesylate (Gleevec)) 200 mg DAILY07 PO ; Start 01/09/18 at 07:00; Status UNV Non-Formulary Medication (Imatinib Mesylate (Gleevec)) 400 mg DAILY PO Last administered on 01/09/18at 07:50; Start 01/09/18 at 09:00 Pantoprazole Sodium (Protonix) 40 mg DAILYAC PO Last administered on 01/09/18 07:50; Start 01/08/18 at 12:00 Simvastatin (Zocor) 20 mg HS PO Last administered on 01/08/18at 20:48; Start at 21:00 Warfarin Sodium (Coumadin Per Pharmacy) 1 each PRN DAILY PRN MC SEE COMMENTS Last administered on 01/08/18at 14:51; Start 01/08/18 at 10:45 Lidocaine (Lidoderm) 1 patch DAILY TD Last administered on 01/09/18at 07:47; Start 01/08/18 at 11:00 Magnesium Hydroxide (Milk Of Magnesia) 2,400 mg 1X ONCE PO ; Start 01/08/18 at 12:00; Stop 01/08/18 at 12:01; Status DC Polyethylene Glycol (miraLAX PACKET) 17 gm 1X ONCE PO ; Start 01/08/18 at 12:00 ; Stop 01/08/18 at 12:01; Status DC Polyethylene Glycol (miraLAX PACKET) 17 gm DAILY PO ; Start 01/09/18 at 09:00 Docusate Sodium (Colace) 100 mg DAILY PO Last administered on 01/08/18at 14:33; Start 01/08/18 at 12:00 Methylprednisolone (Medrol) 8 mg BID PO Last administered on 01/08/18at 20:48; Start 01/08/18 at 09:00; Stop 01/08/18 at 21:01; Status DC Methylprednisolone (Medrol) 4 mg BIDPCLD PO Last administered on 01/08/18at 17: 32; Start 01/08/18 at 12:30; Stop 01/08/18 at 17:31; Status DC Methylprednisolone (Medrol) 4 mg TIDPC PO Last administered on 01/09/18at 07:49 ; Start 01/09/18 at 08:30; Stop 01/09/18 at 17:31 Methylprednisolone (Medrol) 8 mg QHS PO ; Start 01/09/18 at 21:00; Stop at 21:01 Methylprednisolone (Medrol) 4 mg QIDAFTMEAL PO ; Start 01/10/18 at 09:00; Stop 01/10/18 at 21:01 Methylprednisolone (Medrol) 4 mg TID PO ; Start 01/11/18 at 09:00; Stop at 21:01 Methylprednisolone (Medrol) 4 mg BID PO ; Start 01/12/18 at 09:00; Stop at 21:01 Methylprednisolone (Medrol) 4 mg DAILY PO ; Start 01/13/18 at 09:00; Stop at 09:01 Oxycodone HCl (Roxicodone) 10 mg PRN Q6HRS PRN PO MODERATE-SEVERE PAIN; Start 01/08/18 at 13:30 Senna/Docusate Sodium (Senna Plus) 1 tab BID PO Last administered on 01/08/18at 20:48; Start 01/08/18 at 21:00 Bisacodyl (Dulcolax Supp) 10 mg PRN DAILY PRN [place] CONSTIPATION, 1ST CHOICE; Start 01/08/18 at 13:45 Bisacodyl (Dulcolax Tab) 10 mg DAILY PO Last administered on 01/09/18at 07:49; Start 01/09/18 at 09:00 Sodium Monofluorophosphate (Fleet Adult) 133 ml PRN DAILY PRN LA CONSTIPATION, 2ND CHOICE; Start 01/08/18 at 13:45 Warfarin Sodium (Coumadin) 5 mg 1X WARF ONCE PO Last administered on at 16:25; Start 01/08/18 at 16:00; Stop 01/08/18 at 16:01; Status DC Alprazolam (Xanax) 1 mg QHS PO Last administered on 01/08/18at 20:48; Start at 21:00 Active Scripts Active Diltiazem 24HR Cd (Diltiazem Hcl) 180 Mg Cap.er.24h 180 Mg PO DAILY 30 Days Reported Warfarin Sodium 5 Mg Tablet 1 Tab PO DAILY Alprazolam 1 Mg Tablet 1 Mg PO DAILY Janumet 50-500 Mg Tablet (Sitagliptin Phos/Metformin Hcl) 1 Each Tablet 1 Each PO Simvastatin 20 Mg Tablet 20 Mg PO DAILY Omeprazole 20 Mg Tablet.dr 20 Mg PO DAILY06 Gleevec (Imatinib Mesylate) 100 Mg Tablet 400 Mg PO DAILY Vitals/I & O Vital Sign - Last 24 Hours 01/08/18 01/08/18 01/08/18 01/08/18 09:30 10:00 10:30 11:00 Pulse 58 58 87 86 Resp 19 B/P (MAP) 97/53 (68) 92/54 (67) 114/68 (83) 118/64 (82) Pulse Ox 98 98 97 97 01/08/18 01/08/18 01/08/18 01/08/18 12:57 14:08 14:35 19:30 Temp 98.2 98.1 98.2 98.1 Pulse 82 82 93 Resp 18 B/P (MAP) 116/67 (83) 116/67 126/63 (84) Pulse Ox 98 95 O2 Delivery Room Air Room Air Room Air 01/08/18 01/08/18 01/09/18 01/09/18 20:00 23:25 03:20 07:00 Temp 97.7 98.0 97.5 97.7 98.0 97.5 Pulse 98 90 107 Resp 18 B/P (MAP) 119/71 (87) 121/64 (83) 131/77 (95) Pulse Ox 97 94 94 O2 Delivery Room Air Room Air Room Air Room Air 01/09/18 01/09/18 07:50 07:55 Pulse 107 B/P (MAP) 131/77 O2 Delivery Room Air Intake and Output 01/08/18 01/08/18 01/09/18 15:00 23:00 07:00 Intake Total 400 ml 720 ml Output Total 400 ml Balance 400 ml 320 ml DELORES ADRIAN MD Jan 09, 2018 09:19
--- NOTE | 2018-01-09 10:43 | PDOC ---
PROGRESS NOTES History of Present Illness History of Present Illness Assessment/Plan Assessment/Plan Sudden onset of bilateral lower extremity weakness, muscle aches and pains, moves in locatioN bilateral lower extremity weakness that he cannot elevate against gravity. MRI of the lumbosacral spine consult physiatry. Moderate to severe bilateral neural foraminal stenosis is seen. The extruded disc fragment extends to the superior L3 level. This deforms the anterior surface of the thecal sac, left greater than right and contributes to moderate to severe left greater than right central spinal canal stenosis throughout the majority of the L3 level. TSH and a sedimentation rate Also include rheumatology consult CPK is normal Recent A. fib, now rate controlled, on warfarin with therapeutic INR Hypertension controlled CK D Plan: PT/OT Consult physiatry, check sedimentation rate and TSH Resume home meds, warfarin per protocol hold metformin because of creatinine 1.4, sliding scale insulin high-dose Further conditions pending course My plan of care discussed with him- He agrees Add PTOT Vitals Vitals Vital Signs Date Time Temp Pulse Resp B/P (MAP) Pulse Ox O2 Delivery O2 Flow Rate FiO2 01/09/18 07:55 Room Air 01/09/18 07:50 107 131/77 01/09/18 07:00 97.5 18 94 97.5 Physical Exam General: Alert, Oriented X3, Cooperative, No acute distress Heart: Regular rate, Normal S1, Normal S2 Lungs: Clear Abdomen: Normal bowel sounds, Soft, No tenderness, No hepatosplenomegaly, No masses Extremities: No clubbing, No cyanosis, No edema, Normal pulses, No tenderness/ swelling Skin: No rashes, No breakdown, No significant lesion Labs LABS TECHNIQUE: Unenhanced T1-weighted, T2-weighted and inversion recovery sagittal and T1-weighted and T2-weighted axial images of the lumbar spine were obtained. FINDINGS: Comparison is made to radiographs of the lumbar spine dated 12/28/2016. Mild S-shaped curvature of the thoracolumbar spine is seen. Degenerative signal changes are seen involving all of the disks of the lumbar spine. Degenerative signal changes are seen within the marrow surrounding these discs. Loss of height of the L1-2, L3-4 and L4-5 discs is noted. The conus medullaris is normal in position and signal characteristics. A 1.8 cm rounded high signal intensity lesion is seen involving the upper pole of the right kidney on the T2-weighted images. This likely represents a cyst. There is no MRI evidence of a compression fracture involving the lumbar vertebrae or insufficiency fracture involving the sacrum. At the T12-L1 disc space there is a mild generalized disc bulge. Superimposed on this disc bulge is a focal central disc protrusion which extrudes slightly superiorly and inferiorly. It measures 3.5 mm in AP diameter. Degenerative changes are seen involving the facet joints bilaterally. These findings result in mild central spinal canal stenosis. No neural foraminal stenosis is seen. At the L1-2 disc space there is a moderate generalized disc bulge. This is eccentric to the right. Superimposed on this disc bulge is a right paracentral focal disc protrusion which extrudes inferiorly. It measures 4 mm in AP diameter. Degenerative changes are seen involving the facet joints bilaterally. There is mild ligamentum flavum hypertrophy bilaterally. There is prominence of the posterior epidural fat. There are small facet joint effusions. These findings when combined result in mild to moderate central spinal canal stenosis. No neural foraminal stenosis is seen. At the L2-3 disc space there is a moderate generalized disc bulge. Degenerative changes are seen involving the facet joints bilaterally. There is mild to moderate ligamentum flavum hypertrophy bilaterally. There is prominence of the posterior epidural fat. These findings when combined result in mild central spinal canal stenosis. No neural foraminal stenosis is seen. At the L3-4 disc space there is a moderate generalized disc bulge. Superimposed on this disc bulge is a focal central disc herniation. This extrudes superiorly as a free disc fragment. The extruded disc fragment measures 2.5 x 1.4 x 1.0 cm in craniocaudal, transverse and AP dimensions. Degenerative changes are seen involving the facet joints bilaterally. There is moderate to severe ligamentum flavum hypertrophy bilaterally. There are small to moderate-sized facet joint effusions. These findings when combined result in moderate to severe central spinal canal stenosis. Moderate to severe bilateral neural foraminal stenosis is seen. The extruded disc fragment extends to the superior L3 level. This deforms the anterior surface of the thecal sac, left greater than right and contributes to moderate to severe left greater than right central spinal canal stenosis throughout the majority of the L3 level. At the L4-5 disc space there is a mild generalized disc bulge. Degenerative changes are seen involving the facet joints bilaterally. There is mild ligamentum flavum hypertrophy bilaterally. These findings when combined do not result in significant central spinal canal or neural foraminal stenosis. At the L5-S1 disc space there is mild to moderate generalized disc bulge. Degenerative changes are seen involving the facet joints bilaterally. These findings when combined do not result in significant central spinal canal or neural foraminal stenosis. IMPRESSION: The changes of degenerative disc disease are seen throughout the lumbar spine. These findings result in mild central spinal canal stenosis at T12-L1, mild to moderate central spinal canal stenosis at L1-2, mild central spinal canal stenosis at L2-3 and moderate to severe central spinal canal stenosis at L3-4. Moderate to severe bilateral neural foraminal stenosis is seen at L3-4. At the L3-4 disc space a large central extruded free disc fragment is seen. This deforms the anterior aspect of the thecal sac and results in moderate to severe left greater than right central spinal canal stenosis throughout the majority of the L3 level. Electronically signed by: Darryn Newman MD (01/08/2018 12:51 PM) [facility] Laboratory Tests Test 01/08/18 12:55 01/08/18 15:45 01/09/18 03:55 Troponin I Quantitative < 0.017 ng/mL (0.000-0.055) < 0.017 ng/mL (0.000-0.055) Prothrombin Time 27.0 SEC (11.7-14.0) Prothromb Time International Ratio 2.6 (0.8-1.1) Assessment and Plan Assessmemt and Plan Problems Medical Problems: (1) Atypical chest pain Status: Acute Comment Review of Relevant I have reviewed the following items evelia (where applicable) has been applied. Labs Laboratory Tests Test 01/08/18 06:50 01/08/18 08:40 01/08/18 12:55 01/08/18 15:45 White Blood Count 10.3 x10^3/uL (4.0-11.0) Red Blood Count 4.19 x10^6/uL (4.30-5.70) Hemoglobin 13.5 g/dL (13.0-17.5) Hematocrit 39.7 % (39.0-53.0) Mean Corpuscular Volume 95 fL (79-100) Mean Corpuscular Hemoglobin 32 pg (25-35) Mean Corpuscular Hemoglobin Concent 34 g/dL (31-37) Red Cell Distribution Width 15.0 % (11.5-14.5) Platelet Count 193 x10^3/uL (140-400) Neutrophils (%) (Auto) 79 % (31-73) Lymphocytes (%) (Auto) 11 % (24-48) Monocytes (%) (Auto) 7 % (0-9) Eosinophils (%) (Auto) 2 % (0-3) Basophils (%) (Auto) 1 % (0-3) Neutrophils # (Auto) 8.1 x10^3uL (1.8-7.7) Lymphocytes # (Auto) 1.1 x10^3/uL (1.0-4.8) Monocytes # (Auto) 0.8 x10^3/uL (0.0-1.1) Eosinophils # (Auto) 0.2 x10^3/uL (0.0-0.7) Basophils # (Auto) 0.1 x10^3/uL (0.0-0.2) Erythrocyte Sedimentation Rate 22 (0-15) Prothrombin Time 24.4 SEC (11.7-14.0) Prothromb Time International Ratio 2.3 (0.8-1.1) Sodium Level 134 mmol/L (136-145) Potassium Level 4.1 mmol/L (3.5-5.1) Chloride Level 101 mmol/L (98-107) Carbon Dioxide Level 25 mmol/L (21-32) Anion Gap 8 (6-14) Blood Urea Nitrogen 19 mg/dL (8-26) Creatinine 1.4 mg/dL (0.7-1.3) Estimated GFR (Cockcroft-Gault) 49.3 BUN/Creatinine Ratio 14 (6-20) Glucose Level 187 mg/dL (70-99) Lactic Acid Level 1.9 mmol/L (0.4-2.0) Calcium Level 8.9 mg/dL (8.5-10.1) Magnesium Level 1.7 mg/dL (1.8-2.4) Total Bilirubin 0.6 mg/dL (0.2-1.0) Aspartate Amino Transf (AST/SGOT) 20 U/L (15-37) Alanine Aminotransferase (ALT/SGPT) 23 U/L (16-63) Alkaline Phosphatase 73 U/L (46-116) Creatine Kinase 189 U/L (39-308) Creatine Kinase MB (Mass) 3.6 ng/mL (0.0-3.6) Creatine Kinase MB Relative Index 1.9 % (0-4) Troponin I Quantitative < 0.017 ng/mL (0.000-0.055) < 0.017 ng/mL (0.000-0.055) < 0.017 ng/mL (0.000-0.055) ZF-Wdi-D-Type Natriuretic Peptide 656 pg/mL (0-449) Total Protein 7.0 g/dL (6.4-8.2) Albumin 3.8 g/dL (3.4-5.0) Albumin/Globulin Ratio 1.2 (1.0-1.7) Lipase 396 U/L (73-393) Thyroid Stimulating Hormone (TSH) 0.837 uIU/mL (0.358-3.74) Urine Collection Type Void Urine Color Yellow Urine Clarity Clear Urine pH 6.0 Urine Specific Grandy >=1.030 Urine Protein Negative mg/dL (NEG-TRACE) Urine Glucose (UA) Negative mg/dL (NEG) Urine Ketones (Stick) 15 mg/dL (NEG) Urine Blood Negative (NEG) Urine Nitrite Negative (NEG) Urine Bilirubin Negative (NEG) Urine Urobilinogen Dipstick 0.2 mg/dL (0.2 mg/dL) Urine Leukocyte Esterase Negative (NEG) Urine RBC 1-2 /HPF (0-2) Urine WBC 5-10 /HPF (0-4) Urine Squamous Epithelial Cells Few /LPF Urine Amorphous Sediment Present /HPF Urine Bacteria Few /HPF (0-FEW) Urine Mucus Slight /LPF Test 01/09/18 03:55 Prothrombin Time 27.0 SEC (11.7-14.0) Prothromb Time International Ratio 2.6 (0.8-1.1) Laboratory Tests Test 01/08/18 12:55 01/08/18 15:45 01/09/18 03:55 Troponin I Quantitative < 0.017 ng/mL (0.000-0.055) < 0.017 ng/mL (0.000-0.055) Prothrombin Time 27.0 SEC (11.7-14.0) Prothromb Time International Ratio 2.6 (0.8-1.1) Medications Current Medications Sodium Chloride 1,000 ml @ 1,000 mls/hr Q1H IV Last administered on 01/08/18at 07:23; Start 01/08/18 at 07:00; Stop 01/08/18 at 07:59; Status DC Morphine Sulfate (Morphine Sulfate) 4 mg 1X ONCE IV Last administered on at 07:30; Start 01/08/18 at 07:00; Stop 01/08/18 at 07:01; Status DC Diazepam (Valium) 5 mg 1X ONCE PO Last administered on 01/08/18at 07:23; Start 01/08/18 at 07:00; Stop 01/08/18 at 07:01; Status DC Iohexol (Omnipaque 300 Mg/ml) 75 ml 1X ONCE IV Last administered on 01/08/18at 07:48; Start 01/08/18 at 07:45; Stop 01/08/18 at 07:47; Status DC Info (CONTRAST GIVEN -- Rx MONITORING) 1 each PRN DAILY PRN MC SEE COMMENTS; Start 01/08/18 at 07:45; Stop 01/10/18 at 07:44 Aspirin (Children'S Aspirin) 162 mg 1X ONCE PO Last administered on 01/08/18at 09:44; Start 01/08/18 at 09:30; Stop 01/08/18 at 09:31; Status DC Ceftriaxone Sodium 50 ml @ 100 mls/hr 1X ONCE IV Last administered on at 09:55; Start 01/08/18 at 09:45; Stop 01/08/18 at 10:14; Status DC Morphine Sulfate (Morphine Sulfate) 4 mg PRN Q2HR PRN IV PAIN; Start 01/08/18 at 10:15; Stop 01/09/18 at 10:14; Status DC Ondansetron HCl (Zofran) 4 mg PRN Q6HRS PRN IV NAUSEA/VOMITING; Start 01/08/18 at 10:30 Ondansetron HCl (Zofran Odt) 4 mg PRN Q6HRS PRN PO NAUSEA/VOMITING; Start 01/08 at 10:30 Alprazolam (Xanax) 1 mg DAILY PO ; Start 01/08/18 at 12:00; Stop 01/08/18 at 15: 00; Status DC Aspirin (Children'S Aspirin) 81 mg DAILY PO ; Start 01/08/18 at 12:00; Stop at 19:17; Status DC Cyclobenzaprine HCl (Flexeril) 10 mg TID PO ; Start 01/08/18 at 14:00; Stop at 19:17; Status DC Tramadol HCl (Ultram) 50 mg PRN Q6HRS PRN PO MILD PAIN; Start 01/08/18 at 10:45 Diltiazem HCl (Cardizem 24hr Cd) 180 mg DAILY PO Last administered on at 07:50; Start 01/08/18 at 12:00 Non-Formulary Medication (Imatinib Mesylate (Gleevec)) 200 mg DAILY07 PO ; Start 01/09/18 at 07:00; Status UNV Non-Formulary Medication (Imatinib Mesylate (Gleevec)) 400 mg DAILY PO Last administered on 01/09/18at 07:50; Start 01/09/18 at 09:00 Pantoprazole Sodium (Protonix) 40 mg DAILYAC PO Last administered on 01/09/18at 07:50; Start 01/08/18 at 12:00 Simvastatin (Zocor) 20 mg HS PO Last administered on 01/08/18at 20:48; Start at 21:00 Warfarin Sodium (Coumadin Per Pharmacy) 1 each PRN DAILY PRN MC SEE COMMENTS Last administered on 01/08/18at 14:51; Start 01/08/18 at 10:45 Lidocaine (Lidoderm) 1 patch DAILY TD Last administered on 01/09/18at 07:47; Start 01/08/18 at 11:00 Magnesium Hydroxide (Milk Of Magnesia) 2,400 mg 1X ONCE PO ; Start 01/08/18 at 12:00; Stop 01/08/18 at 12:01; Status DC Polyethylene Glycol (miraLAX PACKET) 17 gm 1X ONCE PO ; Start 01/08/18 at 12:00 ; Stop 01/08/18 at 12:01; Status DC Polyethylene Glycol (miraLAX PACKET) 17 gm DAILY PO ; Start 01/09/18 at 09:00 Docusate Sodium (Colace) 100 mg DAILY PO Last administered on 01/08/18at 14:33; Start 01/08/18 at 12:00 Methylprednisolone (Medrol) 8 mg BID PO Last administered on 01/08/18at 20:48; Start 01/08/18 at 09:00; Stop 01/08/18 at 21:01; Status DC Methylprednisolone (Medrol) 4 mg BIDPCLD PO Last administered on 01/08/18at 17: 32; Start 01/08/18 at 12:30; Stop 01/08/18 at 17:31; Status DC Methylprednisolone (Medrol) 4 mg TIDPC PO Last administered on 01/09/18at 07:49 ; Start 01/09/18 at 08:30; Stop 01/09/18 at 17:31 Methylprednisolone (Medrol) 8 mg QHS PO ; Start 01/09/18 at 21:00; Stop at 21:01 Methylprednisolone (Medrol) 4 mg QIDAFTMEAL PO ; Start 01/10/18 at 09:00; Stop 01/10/18 at 21:01 Methylprednisolone (Medrol) 4 mg TID PO ; Start 01/11/18 at 09:00; Stop at 21:01 Methylprednisolone (Medrol) 4 mg BID PO ; Start 01/12/18 at 09:00; Stop at 21:01 Methylprednisolone (Medrol) 4 mg DAILY PO ; Start 01/13/18 at 09:00; Stop at 09:01 Oxycodone HCl (Roxicodone) 10 mg PRN Q6HRS PRN PO MODERATE-SEVERE PAIN; Start 01/08/18 at 13:30 Senna/Docusate Sodium (Senna Plus) 1 tab BID PO Last administered on 01/08/18at 20:48; Start 01/08/18 at 21:00 Bisacodyl (Dulcolax Supp) 10 mg PRN DAILY PRN PA CONSTIPATION, 1ST CHOICE; Start 01/08/18 at 13:45 Bisacodyl (Dulcolax Tab) 10 mg DAILY PO Last administered on 01/09/18at 07:49; Start 01/09/18 at 09:00 Sodium Monofluorophosphate (Fleet Adult) 133 ml PRN DAILY PRN PA CONSTIPATION, 2ND CHOICE; Start 01/08/18 at 13:45 Warfarin Sodium (Coumadin) 5 mg 1X WARF ONCE PO Last administered on at 16:25; Start 01/08/18 at 16:00; Stop 01/08/18 at 16:01; Status DC Alprazolam (Xanax) 1 mg QHS PO Last administered on 01/08/18at 20:48; Start at 21:00 Active Scripts Active Diltiazem 24HR Cd (Diltiazem Hcl) 180 Mg Cap.er.24h 180 Mg PO DAILY 30 Days Reported Warfarin Sodium 5 Mg Tablet 1 Tab PO DAILY Alprazolam 1 Mg Tablet 1 Mg PO DAILY Janumet 50-500 Mg Tablet (Sitagliptin Phos/Metformin Hcl) 1 Each Tablet 1 Each PO Simvastatin 20 Mg Tablet 20 Mg PO DAILY Omeprazole 20 Mg Tablet.dr 20 Mg PO DAILY06 Gleevec (Imatinib Mesylate) 100 Mg Tablet 400 Mg PO DAILY Vitals/I & O Vital Sign - Last 24 Hours 01/08/18 01/08/18 01/08/18 01/08/18 11:00 12:57 14:08 14:35 Temp 98.2 98.2 Pulse 86 82 82 Resp 19 20 B/P (MAP) 118/64 (82) 116/67 (83) 116/67 Pulse Ox 97 98 O2 Delivery Room Air Room Air 01/08/18 01/08/18 01/08/18 01/09/18 19:30 20:00 23:25 03:20 Temp 98.1 97.7 98.0 98.1 97.7 98.0 Pulse 93 98 90 Resp 18 22 20 B/P (MAP) 126/63 (84) 119/71 (87) 121/64 (83) Pulse Ox 95 97 94 O2 Delivery Room Air Room Air Room Air Room Air 01/09/18 01/09/18 01/09/18 07:00 07:50 07:55 Temp 97.5 97.5 Pulse 107 107 Resp 18 B/P (MAP) 131/77 (95) 131/77 Pulse Ox 94 O2 Delivery Room Air Room Air Intake and Output 01/08/18 01/08/18 01/09/18 15:00 23:00 07:00 Intake Total 400 ml 720 ml Output Total 400 ml Balance 400 ml 320 ml TANISHA BROUSSARD MD Jan 09, 2018 10:43
[2018-01-09 11:00] VITALS: BP 115/74
[2018-01-09 15:00] VITALS: BP 128/72
[2018-01-09] MEDS ORDERED: WARFARIN 5 MG TABLET. PO ONE (16:00)
[2018-01-09] MEDS ORDERED: methylPREDNISolone 4 MG TABLET. PO SCH (21:00)
[2018-01-10] MEDS ORDERED: methylPREDNISolone 4 MG TABLET. PO SCH (09:00)
--- NOTE | 2018-01-10 09:56 | PDOC3 ---
Discharge Summary Date of Admission: Jan 08, 2018 Date of Discharge: Jan 09, 2018 Follow-Up: 3-5 days Admitting Diagnosis comment: DISMISSAL DIAGNOSIS History of Present Illness Assessment/Plan Assessment/Plan Sudden onset of bilateral lower extremity weakness, muscle aches and pains, moves in locatioN bilateral lower extremity weakness that he cannot elevate against gravity. 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 The extruded disc fragment extends to the superior L3 level. This deforms the anterior surface of the thecal sac, left greater than right and contributes to moderate to severe left greater than right central spinal canal stenosis throughout the majority of the L3 level. TSH and a sedimentation rate Also include rheumatology consult CPK is normal Recent A. fib, now rate controlled, on warfarin with therapeutic INR Hypertension controlled CK D Plan: OK FOR D/C TODAY, SEE PCP 2-3 DAYS, DR ADRIAN 1 WEEK PT/OT Consult physiatry, check sedimentation rate and TSH Resume home meds, warfarin per protocol hold metformin because of creatinine 1.4, sliding scale insulin high-dose Further conditions pending course My plan of care discussed with him- He agrees Add PTOT Vitals Vitals Vital Signs Date Time Temp Pulse Resp B/P (MAP) Pulse Ox O2 Delivery O2 Flow Rate FiO2 01/09/18 07:55 Room Air 01/09/18 07:50 107 131/77 01/09/18 07:00 97.5 18 94 97.5 Physical Exam General: Alert, Oriented X3, Cooperative, No acute distress Heart: Regular rate, Normal S1, Normal S2 Lungs: Clear Abdomen: Normal bowel sounds, Soft, No tenderness, No hepatosplenomegaly, No masses Extremities: No clubbing, No cyanosis, No edema, Normal pulses, No tenderness/ swelling Skin: No rashes, No breakdown, No significant lesion Labs LABS TECHNIQUE: Unenhanced T1-weighted, T2-weighted and inversion recovery sagittal and T1-weighted and T2-weighted axial images of the lumbar spine were obtained. FINDINGS: Comparison is made to radiographs of the lumbar spine dated 12/28/2016. Mild S-shaped curvature of the thoracolumbar spine is seen. Degenerative signal changes are seen involving all of the disks of the lumbar spine. Degenerative signal changes are seen within the marrow surrounding these discs. Loss of height of the L1-2, L3-4 and L4-5 discs is noted. The conus medullaris is normal in position and signal characteristics. A 1.8 cm rounded high signal intensity lesion is seen involving the upper pole of the right kidney on the T2-weighted images. This likely represents a cyst. There is no MRI evidence of a compression fracture involving the lumbar vertebrae or insufficiency fracture involving the sacrum. At the T12-L1 disc space there is a mild generalized disc bulge. Superimposed on this disc bulge is a focal central disc protrusion which extrudes slightly superiorly and inferiorly. It measures 3.5 mm in AP diameter. Degenerative changes are seen involving the facet joints bilaterally. These findings result in mild central spinal canal stenosis. No neural foraminal stenosis is seen. At the L1-2 disc space there is a moderate generalized disc bulge. This is eccentric to the right. Superimposed on this disc bulge is a right paracentral focal disc protrusion which extrudes inferiorly. It measures 4 mm in AP diameter. Degenerative changes are seen involving the facet joints bilaterally. There is mild ligamentum flavum hypertrophy bilaterally. There is prominence of the posterior epidural fat. There are small facet joint effusions. These findings when combined result in mild to moderate central spinal canal stenosis. No neural foraminal stenosis is seen. At the L2-3 disc space there is a moderate generalized disc bulge. Degenerative changes are seen involving the facet joints bilaterally. There is mild to moderate ligamentum flavum hypertrophy bilaterally. There is prominence of the posterior epidural fat. These findings when combined result in mild central spinal canal stenosis. No neural foraminal stenosis is seen. FINAL DIAGNOSIS Problems Medical Problems: (1) Atypical chest pain Status: Acute Brief Hospital Course Mr. Garcia is a 77 old [sex] who presented with [ EXTRUDED DISC] CONDITION AT DISCHARGE: Improved Discharge Medications Current Medications Sodium Chloride 1,000 ml @ 1,000 mls/hr Q1H IV Last administered on 01/08/18at 07:23; Start 01/08/18 at 07:00; Stop 01/08/18 at 07:59; Status DC Morphine Sulfate (Morphine Sulfate) 4 mg 1X ONCE IV Last administered on at 07:30; Start 01/08/18 at 07:00; Stop 01/08/18 at 07:01; Status DC Diazepam (Valium) 5 mg 1X ONCE PO Last administered on 01/08/18at 07:23; Start 01/08/18 at 07:00; Stop 01/08/18 at 07:01; Status DC Iohexol (Omnipaque 300 Mg/ml) 75 ml 1X ONCE IV Last administered on 01/08/18at 07:48; Start 01/08/18 at 07:45; Stop 01/08/18 at 07:47; Status DC Info (CONTRAST GIVEN -- Rx MONITORING) 1 each PRN DAILY PRN MC SEE COMMENTS; Start 01/08/18 at 07:45; Stop 01/09/18 at 18:26; Status DC Aspirin (Children'S Aspirin) 162 mg 1X ONCE PO Last administered on 01/08/18at 09:44; Start 01/08/18 at 09:30; Stop 01/08/18 at 09:31; Status DC Ceftriaxone Sodium 50 ml @ 100 mls/hr 1X ONCE IV Last administered on at 09:55; Start 01/08/18 at 09:45; Stop 01/08/18 at 10:14; Status DC Morphine Sulfate (Morphine Sulfate) 4 mg PRN Q2HR PRN IV PAIN; Start 01/08/18 at 10:15; Stop 01/09/18 at 10:14; Status DC Ondansetron HCl (Zofran) 4 mg PRN Q6HRS PRN IV NAUSEA/VOMITING; Start 01/08/18 at 10:30; Stop 01/09/18 at 18:26; Status DC Ondansetron HCl (Zofran Odt) 4 mg PRN Q6HRS PRN PO NAUSEA/VOMITING; Start 01/08 at 10:30; Stop 01/09/18 at 18:26; Status DC Alprazolam (Xanax) 1 mg DAILY PO ; Start 01/08/18 at 12:00; Stop 01/08/18 at 15: 00; Status DC Aspirin (Children'S Aspirin) 81 mg DAILY PO ; Start 01/08/18 at 12:00; Stop at 19:17; Status DC Cyclobenzaprine HCl (Flexeril) 10 mg TID PO ; Start 01/08/18 at 14:00; Stop at 19:17; Status DC Tramadol HCl (Ultram) 50 mg PRN Q6HRS PRN PO MILD PAIN; Start 01/08/18 at 10:45 ; Stop 01/09/18 at 18:26; Status DC Diltiazem HCl (Cardizem 24hr Cd) 180 mg DAILY PO Last administered on at 07:50; Start 01/08/18 at 12:00; Stop 01/09/18 at 18:26; Status DC Non-Formulary Medication (Imatinib Mesylate (Gleevec)) 200 mg DAILY07 PO ; Start 01/09/18 at 07:00; Status UNV Non-Formulary Medication (Imatinib Mesylate (Gleevec)) 400 mg DAILY PO Last administered on 01/09/18at 07:50; Start 01/09/18 at 09:00; Stop 01/09/18 at 18:26 ; Status DC Pantoprazole Sodium (Protonix) 40 mg DAILYAC PO Last administered on 01/09/18at 07:50; Start 01/08/18 at 12:00; Stop 01/09/18 at 18:26; Status DC Simvastatin (Zocor) 20 mg HS PO Last administered on 01/08/18at 20:48; Start at 21:00; Stop 01/09/18 at 18:26; Status DC Warfarin Sodium (Coumadin Per Pharmacy) 1 each PRN DAILY PRN MC SEE COMMENTS Last administered on 01/09/18at 14:43; Start 01/08/18 at 10:45; Stop 01/09/18 at 18:26; Status DC Lidocaine (Lidoderm) 1 patch DAILY TD Last administered on 01/09/18at 07:47; Start 01/08/18 at 11:00; Stop 01/09/18 at 18:26; Status DC Magnesium Hydroxide (Milk Of Magnesia) 2,400 mg 1X ONCE PO ; Start 01/08/18 at 12:00; Stop 01/08/18 at 12:01; Status DC Polyethylene Glycol (miraLAX PACKET) 17 gm 1X ONCE PO ; Start 01/08/18 at 12:00 ; Stop 01/08/18 at 12:01; Status DC Polyethylene Glycol (miraLAX PACKET) 17 gm DAILY PO ; Start 01/09/18 at 09:00; Stop 01/09/18 at 18:26; Status DC Docusate Sodium (Colace) 100 mg DAILY PO Last administered on 01/08/18at 14:33; Start 01/08/18 at 12:00; Stop 01/09/18 at 18:26; Status DC Methylprednisolone (Medrol) 8 mg BID PO Last administered on 01/08/18at 20:48; Start 01/08/18 at 09:00; Stop 01/08/18 at 21:01; Status DC Methylprednisolone (Medrol) 4 mg BIDPCLD PO Last administered on 01/08/18at 17: 32; Start 01/08/18 at 12:30; Stop 01/08/18 at 17:31; Status DC Methylprednisolone (Medrol) 4 mg TIDPC PO Last administered on 01/09/18at 16:59 ; Start 01/09/18 at 08:30; Stop 01/09/18 at 17:31; Status DC Methylprednisolone (Medrol) 8 mg QHS PO ; Start 01/09/18 at 21:00; Stop at 21:00; Status DC Methylprednisolone (Medrol) 4 mg QIDAFTMEAL PO ; Start 01/10/18 at 09:00; Stop 01/10/18 at 09:00; Status DC Methylprednisolone (Medrol) 4 mg TID PO ; Start 01/11/18 at 09:00; Stop at 09:00; Status DC Methylprednisolone (Medrol) 4 mg BID PO ; Start 01/12/18 at 09:00; Stop at 09:00; Status DC Methylprednisolone (Medrol) 4 mg DAILY PO ; Start 01/13/18 at 09:00; Stop at 09:00; Status DC Oxycodone HCl (Roxicodone) 10 mg PRN Q6HRS PRN PO MODERATE-SEVERE PAIN; Start 01/08/18 at 13:30; Stop 01/09/18 at 18:26; Status DC Senna/Docusate Sodium (Senna Plus) 1 tab BID PO Last administered on 01/08/18at 20:48; Start 01/08/18 at 21:00; Stop 01/09/18 at 18:26; Status DC Bisacodyl (Dulcolax Supp) 10 mg PRN DAILY PRN NM CONSTIPATION, 1ST CHOICE; Start 01/08/18 at 13:45; Stop 01/09/18 at 18:26; Status DC Bisacodyl (Dulcolax Tab) 10 mg DAILY PO Last administered on 01/09/18at 07:49; Start 01/09/18 at 09:00; Stop 01/09/18 at 18:26; Status DC Sodium Monofluorophosphate (Fleet Adult) 133 ml PRN DAILY PRN NM CONSTIPATION, 2ND CHOICE; Start 01/08/18 at 13:45; Stop 01/09/18 at 18:26; Status DC Warfarin Sodium (Coumadin) 5 mg 1X WARF ONCE PO Last administered on at 16:25; Start 01/08/18 at 16:00; Stop 01/08/18 at 16:01; Status DC Alprazolam (Xanax) 1 mg QHS PO Last administered on 01/08/18at 20:48; Start at 21:00; Stop 01/09/18 at 18:26; Status DC Warfarin Sodium (Coumadin) 5 mg 1X WARF ONCE PO Last administered on at 16:59; Start 01/09/18 at 16:00; Stop 01/09/18 at 16:01; Status DC Active Scripts Active Diltiazem 24HR Cd (Diltiazem Hcl) 180 Mg Cap.er.24h 180 Mg PO DAILY 30 Days Reported Warfarin Sodium 5 Mg Tablet 1 Tab PO DAILY Alprazolam 1 Mg Tablet 1 Mg PO DAILY Janumet 50-500 Mg Tablet (Sitagliptin Phos/Metformin Hcl) 1 Each Tablet 1 Each PO Simvastatin 20 Mg Tablet 20 Mg PO DAILY Omeprazole 20 Mg Tablet.dr 20 Mg PO DAILY06 Gleevec (Imatinib Mesylate) 100 Mg Tablet 400 Mg PO DAILY Vital Signs Vital Signs Date Time Temp Pulse Resp B/P (MAP) Pulse Ox O2 Delivery O2 Flow Rate FiO2 01/09/18 15:00 98.0 102 18 128/72 (90) 96 Room Air 98.0 Labs Laboratory Tests Test 01/08/18 12:55 01/08/18 15:45 01/09/18 03:55 Troponin I Quantitative < 0.017 ng/mL (0.000-0.055) < 0.017 ng/mL (0.000-0.055) Prothrombin Time 27.0 SEC (11.7-14.0) Prothromb Time International Ratio 2.6 (0.8-1.1) Allergies Allergies Coded Allergies Type Severity Reaction Last Updated Verified acetaminophen Allergy Intermediate 03/15/15 Yes Disposition/Orders: D/C to Home Patient Instructions D/C PLANNING 32 MIN TANISHA BROUSSARD MD Jan 10, 2018 09:56
[2018-01-11] MEDS ORDERED: methylPREDNISolone 4 MG TABLET. PO SCH (09:00)
[2018-01-12] MEDS ORDERED: methylPREDNISolone 4 MG TABLET. PO SCH (09:00)
[2018-01-13] MEDS ORDERED: methylPREDNISolone 4 MG TABLET. PO SCH (09:00)
== END 2018-01-09 18:26 | disposition home or self-care (01) | DRG 871 ==
LOC: ER 06:35 → 6 SOUTH 10:00
PROVIDERS: ADMIT Internal Medicine; ATTEND Internal Medicine
DX: A41.9 Sepsis, unspecified organism (principal); J15.6 Pneumonia due to other Gram-negative bacteria; J15.9 Unspecified bacterial pneumonia; I48.91 Unspecified atrial fibrillation; F41.9 Anxiety disorder, unspecified; K21.9 Gastro-esophageal reflux disease without esophagitis; E78.00 Pure hypercholesterolemia, unspecified; I10 Essential (primary) hypertension; K59.00 Constipation, unspecified; M51.36 Other intervertebral disc degeneration, lumbar region; M48.061 Spinal stenosis, lumbar region without neurogenic claudication; M51.26 Other intervertebral disc displacement, lumbar region; M47.9 Spondylosis, unspecified; E11.42 Type 2 diabetes mellitus with diabetic polyneuropathy; M17.12 Unilateral primary osteoarthritis, left knee; M16.12 Unilateral primary osteoarthritis, left hip; Z85.6 Personal history of leukemia; Z90.49 Acquired absence of other specified parts of digestive tract; Z88.6 Allergy status to analgesic agent; Z79.01 Long term (current) use of anticoagulants; R09.1 Pleurisy
CPT/HCPCS: 36415; 71045; 71275; 72148; 74175; 80053; 81001; 82553; 83605; 83690; 83735; 83880; 84443; 84484; 85025; 85610; 85651; 87086; 93005; 96361; 96365; 96375; J0690; J2270; J7030; J7509; Q9967; 97110; 99285-25

== ENCOUNTER 2018-08-01 07:56 | Emergency (ER) | payer MEDICARE ==
[~2018-08-01] VITALS: Ht 182.9 cm; Wt 115.0 kg
--- NOTE | 2018-08-01 08:28 | PHYS DOC ---
Past Medical History Past Medical History: A-Fib, Anxiety, Diabetes-Type II, GERD, High Cholesterol , Hypertension, Other Additional Past Medical Histor: CML, LEUKEMIA Past Surgical History: Cholecystectomy, Tonsillectomy, Other Additional Past Surgical Histo: I&D; left knee Alcohol Use: None Drug Use: None Adult General Chief Complaint Chief Complaint: MECHANICAL FALL HPI HPI Patient is a 78 year old male who presents to the ER with complaints of a bruise to his left side above his hip for the last 2 weeks. Pt states he slid into a railing at his home while walking on ice. He denies any rib, hip, abdominal, back, or chest pain. He also denies any shortness of breath or palpitations. Currently, he rates his pain a 1/10 on the pain scale and reports that the pain is aggravated by palpation or pressure. He denies any hematuria or bloody stools. Review of Systems Review of Systems Constitutional: Denies fever or chills [] HENT: Denies nasal congestion or sore throat [] Respiratory: Denies cough or shortness of breath [] Cardiovascular: No additional information not addressed in HPI [] GI: Denies abdominal pain, or bloody stools : Denies dysuria or hematuria [] Musculoskeletal: Denies back pain or joint pain [] Integument: See HPI Neurologic: Denies headache, focal weakness or sensory changes [] Complete systems were reviewed and found to be within normal limits, except as documented in this note. Current Medications Current Medications Current Medications Medications (Trade) Dose Ordered Sig/Dragan Start Time Stop Time Status Last Admin Dose Admin Info (CONTRAST GIVEN -- Rx MONITORING) 1 each PRN DAILY PRN 08/01/18 10:30 08/03/18 10:29 Iohexol (Omnipaque 300 Mg/ml) 60 ml 1X ONCE 08/01/18 10:30 08/01/18 10:31 DC 08/01/18 10:35 60 ML Allergies Allergies Allergies Coded Allergies Type Severity Reaction Last Updated Verified acetaminophen Allergy Intermediate 03/15/15 Yes Physical Exam Physical Exam Constitutional: Well developed, well nourished, no acute distress, non-toxic appearance. [] HENT: Normocephalic, atraumatic, bilateral external ears normal, nose normal. [ ] Eyes: conjunctiva normal, no discharge. [] Neck: Normal range of motion, no stridor. [] Cardiovascular:Heart rate regular rhythm, no murmur [] Lungs & Thorax: Bilateral breath sounds clear to auscultation [] Abdomen: soft, no tenderness, no masses, no pulsatile masses. [] Skin: Warm, dry, no erythema, large dark purple hematoma noted to left side with centralized area of tenderness and firmness Extremities: No tenderness, no cyanosis, no clubbing, ROM intact, no edema. [] Neurologic: Alert and oriented X 3, normal motor function, normal sensory function, no focal deficits noted. [] Psychologic: Affect normal, judgement normal, mood normal. [] Current Patient Data Vital Signs Vital Signs Date Time Temp Pulse Resp B/P (MAP) Pulse Ox O2 Delivery O2 Flow Rate FiO2 08/01/18 10:49 62 14 100 08/01/18 08:03 97.8 177/85 (115) Room Air 97.8 Lab Values Laboratory Tests Test 08/01/18 08:30 08/01/18 08:40 White Blood Count 5.8 x10^3/uL (4.0-11.0) Red Blood Count 3.69 x10^6/uL (4.30-5.70) L Hemoglobin 11.5 g/dL (13.0-17.5) L Hematocrit 34.4 % (39.0-53.0) L Mean Corpuscular Volume 93 fL (79-100) Mean Corpuscular Hemoglobin 31 pg (25-35) Mean Corpuscular Hemoglobin Concent 34 g/dL (31-37) Red Cell Distribution Width 15.4 % (11.5-14.5) H Platelet Count 215 x10^3/uL (140-400) Neutrophils (%) (Auto) 67 % (31-73) Lymphocytes (%) (Auto) 19 % (24-48) L Monocytes (%) (Auto) 8 % (0-9) Eosinophils (%) (Auto) 5 % (0-3) H Basophils (%) (Auto) 1 % (0-3) Neutrophils # (Auto) 3.9 x10^3uL (1.8-7.7) Lymphocytes # (Auto) 1.1 x10^3/uL (1.0-4.8) Monocytes # (Auto) 0.5 x10^3/uL (0.0-1.1) Eosinophils # (Auto) 0.3 x10^3/uL (0.0-0.7) Basophils # (Auto) 0.1 x10^3/uL (0.0-0.2) Sodium Level 140 mmol/L (136-145) Potassium Level 3.4 mmol/L (3.5-5.1) L Chloride Level 104 mmol/L (98-107) Carbon Dioxide Level 25 mmol/L (21-32) Anion Gap 11 (6-14) Blood Urea Nitrogen 11 mg/dL (8-26) Creatinine 1.2 mg/dL (0.7-1.3) Estimated GFR (Cockcroft-Gault) 58.7 Glucose Level 211 mg/dL (70-99) H Calcium Level 8.5 mg/dL (8.5-10.1) Prothrombin Time 18.0 SEC (11.7-14.0) H Prothrombin Time INR 1.5 (0.8-1.1) H Laboratory Tests 08/01/18 08:30 Laboratory Tests 08/01/18 08:30 EKG EKG [] Radiology/Procedures Radiology/Procedures PROCEDURE: CT ABD PELV W/ IV CONTRST ONLY PQRS Compliance statement: One or more of the following individualized dose reduction techniques were utilized for this examination: 1. Automated exposure control. 2. Adjustment of the mA and/or kV according to patient size. 3. Use of iterative reconstruction technique. Indication:HEMATOMA L SIDE S/P FALL INJ 60ML OMNI 300 PREV SENT TECHNIQUE: CT abdomen and pelvis with IV contrast with multiplanar reformats. COMPARISON: None FINDINGS: Heart is normal in size. No pericardial or pleural effusion. Clear lung bases. Liver, spleen, pancreas, adrenals within normal limits. Status post cholecystectomy. Stable mild pneumobilia. CBD is nondilated. Simple appearing cyst is seen in the right kidney measuring 2.1 cm and in the left kidney measuring 4.1 x 3.0 cm. No nephrolithiasis or hydronephrosis. No enlarged retroperitoneal or pelvic adenopathy. No free pelvic fluid or ascites. No bowel obstruction. Normal appendix. Prostate is enlarged measuring 6.6 x 5.6 x 6.8 cm. Urinary bladder is within normal limits. No suspicious bony lesion. Multilevel degenerative disc disease in the spine. IMPRESSION: 1. No apparent abdominal wall hematoma. 2. Enlarged prostate. Correlate with physical exam and PSA. 3. Stable trace pneumobilia. Correlate with history of sphincterotomy. [] Course & Med Decision Making Course & Med Decision Making Pertinent Labs and Imaging studies reviewed. (See chart for details) [] Dragon Disclaimer Dragon Disclaimer This electronic medical record was generated, in whole or in part, using a voice recognition dictation system. Departure Departure Impression: Primary Impression: Hematoma of left flank Additional Impression: Low hemoglobin and low hematocrit Disposition: HOME, SELF-CARE Condition: STABLE Referrals: DAVID LOVE MD (PCP) Patient Instructions: Hematoma, [id number] Additional Instructions: Follow up with your primary care doctor for recheck of your hemoglobin (11.5) and hematocrit (34.4) next week. Return to the ER if your symptoms worsen. Problem Qualifiers Primary Impression: Hematoma of left flank Encounter type: initial encounter Qualified Codes: S30.1XXA - Contusion of abdominal wall, initial encounter VESTA SILVA APRN Aug 01, 2018 08:28
[2018-08-01 08:43] LABS: BASO # 0.1 x10^3/uL (0.0-0.2); BASO % 1 % (0-3); EOS # 0.3 x10^3/uL (0.0-0.7); EOS % 5 % (0-3); HEMATOCRIT 34.4 % (39.0-53.0); HEMOGLOBIN 11.5 g/dL (13.0-17.5); LYMPH # 1.1 x10^3/uL (1.0-4.8); LYMPH % 19 % (24-48); MEAN CORPUSCULAR HEMOGLOBIN 31 pg (25-35); MEAN CORPUSCULAR HGB CONC 34 g/dL (31-37); MEAN CORPUSCULAR VOLUME 93 fL (79-100); MONO # 0.5 x10^3/uL (0.0-1.1); MONO % 8 % (0-9); NEUT # 3.9 x10^3uL (1.8-7.7); NEUT % 67 % (31-73); PLATELET COUNT 215 x10^3/uL (140-400); RED BLOOD COUNT 3.69 x10^6/uL (4.30-5.70); RED CELL DISTRIBUTION WIDTH 15.4 % (11.5-14.5); WHITE BLOOD COUNT 5.8 x10^3/uL (4.0-11.0)
[2018-08-01 09:58] LABS: CALCIUM 8.5 mg/dL (8.5-10.1); CREATININE 1.2 mg/dL (0.7-1.3); GFR 58.7; POTASSIUM 3.4 mmol/L (3.5-5.1)
[2018-08-01] MEDS ORDERED: IOHEXOL 300 MG/ML 100ML VIAL. IV ONE (10:30)
[2018-08-01] MEDS ORDERED: CONTRAST GIVEN. MC PRN (10:30)
[2018-08-01 10:49] VITALS: BP 153/79
--- NOTE | 2018-08-01 10:55 | RAD ---
PQRS Compliance statement: One or more of the following individualized dose reduction techniques were utilized for this examination: 1. Automated exposure control. 2. Adjustment of the mA and/or kV according to patient size. 3. Use of iterative reconstruction technique. Indication:HEMATOMA L SIDE S/P FALL INJ 60ML OMNI 300 PREV SENT TECHNIQUE: CT abdomen and pelvis with IV contrast with multiplanar reformats. COMPARISON: None FINDINGS: Heart is normal in size. No pericardial or pleural effusion. Clear lung bases. Liver, spleen, pancreas, adrenals within normal limits. Status post cholecystectomy. Stable mild pneumobilia. CBD is nondilated. Simple appearing cyst is seen in the right kidney measuring 2.1 cm and in the left kidney measuring 4.1 x 3.0 cm. No nephrolithiasis or hydronephrosis. No enlarged retroperitoneal or pelvic adenopathy. No free pelvic fluid or ascites. No bowel obstruction. Normal appendix. Prostate is enlarged measuring 6.6 x 5.6 x 6.8 cm. Urinary bladder is within normal limits. No suspicious bony lesion. Multilevel degenerative disc disease in the spine. IMPRESSION: 1. No apparent abdominal wall hematoma. 2. Enlarged prostate. Correlate with physical exam and PSA. 3. Stable trace pneumobilia. Correlate with history of sphincterotomy. Electronically signed by: Randall Griffin DO (08/01/2018 10:52 AM) [id number]
== END 2018-08-01 11:18 | disposition home or self-care (01) ==
LOC: ER 07:56
DX: S30.1XXA Contusion of abdominal wall, initial encounter (principal); D64.9 Anemia, unspecified; N40.0 Benign prostatic hyperplasia without lower urinary tract symptoms; I48.91 Unspecified atrial fibrillation; K21.9 Gastro-esophageal reflux disease without esophagitis; E11.9 Type 2 diabetes mellitus without complications; E78.00 Pure hypercholesterolemia, unspecified; I10 Essential (primary) hypertension; Z88.6 Allergy status to analgesic agent; W00.2XXA Other fall from one level to another due to ice and snow, initial encounter; Y93.01 Activity, walking, marching and hiking; Y92.098 Other place in other non-institutional residence as the place of occurrence of the external cause; Y99.8 Other external cause status
CPT/HCPCS: 36415; 74177; 80048; 85025; 85610; 99284; Q9967

== ENCOUNTER 2020-07-18 09:20 | Emergency (ER) | payer MEDICARE ==
[~2020-07-18] VITALS: Ht 182.9 cm; Wt 111.3 kg
[~2020-07-18 09:20] MED LIST changes: +SIMV20TA18 PO; -SIMV20TA3 PO
[2020-07-18 09:50] VITALS: BP 157/88
--- NOTE | 2020-07-18 10:42 | ED.ADGEN ---
Past Medical History Past Medical History: A-Fib, Anxiety, Cancer, Diabetes-Type II, GERD, High Cholesterol, Hypertension, Other Additional Past Medical Histor: CML, LEUKEMIA Past Surgical History: Cholecystectomy, Tonsillectomy, Other Additional Past Surgical Histo: I&D; left knee Smoking Status: Former Smoker Alcohol Use: None Drug Use: None General Adult EDM: Chief Complaint: ABSCESS HPI: HPI: Patient is a 80 year old male coming in for worsening abscess on the back of his neck. Patient states he has not had an abscess there before and had to be lanced about 5 years ago. Has a history of multiple abscesses. Denies any recent illness, systemic complaints, fevers. She has a history of CML and A. fib and is currently on Xarelto. Denies diabetes. Denies any drainage or injury to the area. Review of Systems: Review of Systems: All other systems within normal limits except for as noted in the HPI Current Medications: Current Medications Medications (Trade) Dose Ordered Sig/Dragan Start Time Stop Time Status Last Admin Dose Admin Lidocaine/ Epinephrine (LIDOCAINE 2%-EPI 1:100,000 multi-dose) 20 ml 1X ONCE 07/18/20 10:45 07/18/20 10:46 DC Allergies: Allergies: Allergies Coded Allergies Type Severity Reaction Last Updated Verified acetaminophen Allergy Intermediate 03/15/15 Yes Physical Exam: PE: Constitutional: Well developed, well nourished, no acute distress, non-toxic appearance. [] HENT: Normocephalic, atraumatic, bilateral external ears normal, nose normal. [] Eyes: PERRLA, conjunctiva normal, no discharge. [] Neck: No rigidity, supple, no stridor. [] Cardiovascular: Regular rate and rhythm, brisk cap refill [] Lungs & Thorax: Non labored symmetric respirations, no tachypnea or respiratory distress [] Abdomen: Soft, nondistended. Skin: Warm, dry, no erythema, no rash. Abscess to back of neck, 1-1/2 x 2 cm [] Back: Unremarkable Extremities: No deformities, range of motion grossly intact, no lower extremity edema [] Neurologic: Alert and oriented X 3, no focal deficits noted. [] Psychologic: Affect normal, judgement normal, mood normal. [] Current Patient Data: Vital Signs: Vital Signs Date Time Temp Pulse Resp B/P (MAP) Pulse Ox O2 Delivery O2 Flow Rate FiO2 07/18/20 09:50 97.5 90 18 157/88 (111) 97 Room Air 97.5 EKG: EKG: [] Heart Score: Risk Factors: Risk Factors: DM, Current or recent (<one month) smoker, HTN, HLP, family history of CAD, obesity. Risk Scores: Score 0 - 3: 2.5% MACE over next 6 weeks - Discharge Home Score 4 - 6: 20.3% MACE over next 6 weeks - Admit for Clinical Observation Score 7 - 10: 72.7% MACE over next 6 weeks - Early Invasive Strategies Radiology/Procedures: Radiology/Procedures: Incision and drainage procedure:. Wound anesthetized with 1% lidocaine with epinephrine, 2 cc. 11 blade used to make 1 cm incision, approximately 2 cc of purulent drainage removed. No packing placed, cover with nonadhesive bandage. Patient tolerated well without complications [] Course & Med Decision Making: Course & Med Decision Making Pertinent Labs and Imaging studies reviewed. (See chart for details) [] Dragon Disclaimer: Dragon Disclaimer: This electronic medical record was generated, in whole or in part, using a voice recognition dictation system. Departure Departure Impression: Primary Impression: Abscess Disposition: 01 DC HOME SELF CARE/HOMELESS Condition: IMPROVED Referrals: DAVID LOVE MD (PCP) Patient Instructions: Incision and Drainage, Care After Scripts Clindamycin Hcl (CLINDAMYCIN HCL) 300 Mg Capsule 1 CAP PO TID for antibiotic, #21 CAP Prov: RUBÉN BORDEN MD 07/18/20 RUBÉN BORDEN MD Jul 18, 2020 10:42
[2020-07-18] MEDS ORDERED: LIDOCAINE 2%/EPI 1:100,000 20 ML VIAL. INJ ONE (10:45)
[2020-07-18] MEDS ORDERED: CLIN300C9 PO (11:18)
== END 2020-07-18 11:26 | disposition home or self-care (01) ==
LOC: ER 09:20
DX: L02.212 Cutaneous abscess of back [any part, except buttock and flank] (principal); I48.20 Chronic atrial fibrillation, unspecified; F41.9 Anxiety disorder, unspecified; K21.9 Gastro-esophageal reflux disease without esophagitis; E78.00 Pure hypercholesterolemia, unspecified; I10 Essential (primary) hypertension; E11.9 Type 2 diabetes mellitus without complications; Z90.49 Acquired absence of other specified parts of digestive tract; Z87.891 Personal history of nicotine dependence; Z90.89 Acquired absence of other organs; Z88.8 Allergy status to other drugs, medicaments and biological substances
CPT/HCPCS: 10060; 99283; J3490

== ENCOUNTER 2021-06-16 10:03 | Emergency (ER) | payer MEDICARE ==
[~2021-06-16] VITALS: Ht 182.9 cm; Wt 102.3 kg
[~2021-06-16 10:03] MED LIST changes: +CLIN-94 PO; +CYCL10TA19 PO; -CYCL10TA2 PO
[2021-06-16] MEDS ORDERED: LIDOCAINE (700MG/PATCH) PATCH. TD ONE (10:45)
[2021-06-16] MEDS ORDERED: fentaNYL PF VIAL 100 MCG/2 ML VIAL IVP ONE (10:45)
[2021-06-16] MEDS ORDERED: IV NORMAL SALINE 1000ML BAG 1,000 ML IV ONE (10:45)
[2021-06-16 10:55] LABS: BASO # 0.1 x10^3/uL (0.0-0.2); BASO % 1 % (0-3); EOS # 0.2 x10^3/uL (0.0-0.7); EOS % 3 % (0-3); HEMATOCRIT 35.3 % (39.0-53.0); HEMOGLOBIN 11.9 g/dL (13.0-17.5); LYMPH # 1.9 x10^3/uL (1.0-4.8); LYMPH % 26 % (24-48); MEAN CORPUSCULAR HEMOGLOBIN 33 pg (25-35); MEAN CORPUSCULAR HGB CONC 34 g/dL (31-37); MEAN CORPUSCULAR VOLUME 97 fL (79-100); MONO # 0.6 x10^3/uL (0.0-1.1); MONO % 8 % (0-9); NEUT # 4.5 x10^3/uL (1.8-7.7); NEUT % 61 % (31-73); PLATELET COUNT 215 x10^3/uL (140-400); RED BLOOD COUNT 3.64 x10^6/uL (4.30-5.70); RED CELL DISTRIBUTION WIDTH 14.8 % (11.5-14.5); WHITE BLOOD COUNT 7.3 x10^3/uL (4.0-11.0)
--- NOTE | 2021-06-16 10:55 | PHYS DOC ---
Past Medical History Past Medical History: A-Fib, Anxiety, Cancer, Diabetes-Type II, GERD, High Cholesterol, Hypertension, Other Additional Past Medical Histor: CML, LEUKEMIA Past Surgical History: Cholecystectomy, Tonsillectomy, Other Additional Past Surgical Histo: I&D; left knee Smoking Status: Former Smoker Alcohol Use: None Drug Use: None Adult General Chief Complaint Chief Complaint: FLANK PAIN HPI HPI The patient is an 81-year-old male, community dwelling, with a history of atrial fibrillation on Xarelto and diltiazem, CML on Gleevec, [id number] diabetes. He presents for evaluation of about 10 days of right flank discomfort, nonradiating and not reproducible to palpation, but markedly worse with bending and twisting of the torso. Discomfort has been constant since onset and has been worse over the past few days, ever since patient lifted a chair to bring over to his who had fallen to the ground. It does not radiate. Severity about 6 out of 10 at present. No associated fevers, nausea or vomiting, upper respiratory congestion/rhinorrhea, cough, sore throat, shortness of breath or chest pain of any kind, abdominal pain of any kind, midline back pain, dysuria, hematuria, polyuria or oliguria, groin pain. Patisasha t does note some mild constipation recently on review of systems but has had a couple of bowel movements in the last 2 days without relief of symptoms. Patient is alert and pleasantly and appropriately interactive and in no acute distress with appropriate vital signs upon initial evaluation here in the emergency department. He has been taking hydrocodone at home without complete relief of symptoms. Review of Systems Review of Systems A 12 point review of systems was completed and was negative except where noted in HPI above. Current Medications Current Medications Current Medications Medications (Trade) Dose Ordered Sig/Dragan Start Time Stop Time Status Last Admin Dose Admin Fentanyl Citrate (Fentanyl 2ml Vial) 50 mcg 1X ONCE 06/16/21 10:45 06/16/21 10:46 DC 06/16/21 11:01 50 MCG Info (CONTRAST GIVEN -- Rx MONITORING) 1 each PRN DAILY PRN 06/16/21 11:30 06/18/21 11:29 Iohexol (Omnipaque 300 Mg/ml) 75 ml 1X ONCE 06/16/21 11:30 06/16/21 11:31 DC 06/16/21 11:34 75 ML Lidocaine (Lidoderm) 1 patch 1X ONCE 06/16/21 10:45 06/16/21 10:46 DC 06/16/21 11:01 1 PATCH Sodium Chloride 1,000 ml @ 1,000 mls/hr 1X ONCE 06/16/21 10:45 06/16/21 11:44 DC 06/16/21 11:00 1,000 MLS/HR Allergies Allergies Allergies Coded Allergies Type Severity Reaction Last Updated Verified acetaminophen Allergy Intermediate 03/15/15 Yes Physical Exam Physical Exam 81-year-old male appearing nontoxic and in no acute distress. Head is normocephalic and atraumatic. Neck is supple and nontender. Oropharynx is moist. Lungs are clear to auscultation at all stations. There is a normal S1 and S2 without rubs or gallops and capillary refill is appropriate, less than 2 seconds globally. Abdomen is soft, nontender and nondistended and without pulsatile mass. Evaluation of the back reveals no erythema, warmth, swelling, midline or lateral/paraspinal tenderness to palpation, mass, lesion or any other acute abnormality. Skin is warm and dry and without cyanosis, clubbing or edema. Psychiatrically, the patient demonstrates appropriate mood and affect and is alert. Evaluation of the extremities reveals BUEs and BLEs neurovascularly intact distally with strength 5 out of 5, sensation intact light touch in all nerve distributions, radial, DP and PT pulses 2+ and equal bilaterally, capillary refill less than 2 seconds, hands and feet warm and well- perfused. No dependent peripheral edema distally. No calf tenderness or swelling bilaterally. Homans test is negative bilaterally. Current Patient Data Vital Signs Vital Signs Date Time Temp Pulse Resp B/P (MAP) Pulse Ox O2 Delivery O2 Flow Rate FiO2 06/16/21 11:36 92 18 125/59 (81) 99 Room Air 06/16/21 10:10 98.7 98.7 Lab Values Laboratory Tests Test 06/16/21 10:15 06/16/21 10:40 Urine Collection Type Unknown Urine Color Yellow Urine Clarity Clear Urine pH 6.5 (<5.0-8.0) Urine Specific Balsam 1.015 (1.000-1.030) Urine Protein Negative mg/dL (NEG-TRACE) Urine Glucose (UA) Negative mg/dL (NEG) Urine Ketones (Stick) Negative mg/dL (NEG) Urine Blood Negative (NEG) Urine Nitrite Negative (NEG) Urine Bilirubin Negative (NEG) Urine Urobilinogen Dipstick 0.2 mg/dL (0.2 mg/dL) Urine Leukocyte Esterase Negative (NEG) Urine RBC 0 /HPF (0-2) Urine WBC 0 /HPF (0-4) Urine Squamous Epithelial Cells Few /LPF Urine Bacteria 0 /HPF (0-FEW) White Blood Count 7.3 x10^3/uL (4.0-11.0) Red Blood Count 3.64 x10^6/uL (4.30-5.70) L Hemoglobin 11.9 g/dL (13.0-17.5) L Hematocrit 35.3 % (39.0-53.0) L Mean Corpuscular Volume 97 fL (79-100) Mean Corpuscular Hemoglobin 33 pg (25-35) Mean Corpuscular Hemoglobin Concent 34 g/dL (31-37) Red Cell Distribution Width 14.8 % (11.5-14.5) H Platelet Count 215 x10^3/uL (140-400) Neutrophils (%) (Auto) 61 % (31-73) Lymphocytes (%) (Auto) 26 % (24-48) Monocytes (%) (Auto) 8 % (0-9) Eosinophils (%) (Auto) 3 % (0-3) Basophils (%) (Auto) 1 % (0-3) Neutrophils # (Auto) 4.5 x10^3/uL (1.8-7.7) Lymphocytes # (Auto) 1.9 x10^3/uL (1.0-4.8) Monocytes # (Auto) 0.6 x10^3/uL (0.0-1.1) Eosinophils # (Auto) 0.2 x10^3/uL (0.0-0.7) Basophils # (Auto) 0.1 x10^3/uL (0.0-0.2) Prothrombin Time 19.7 SEC (11.7-14.0) H Prothrombin Time INR 1.7 (0.8-1.1) H Activated Partial Thromboplast Time 37 SEC (24-38) Sodium Level 137 mmol/L (136-145) Potassium Level 4.6 mmol/L (3.5-5.1) Chloride Level 104 mmol/L (98-107) Carbon Dioxide Level 25 mmol/L (21-32) Anion Gap 8 (6-14) Blood Urea Nitrogen 20 mg/dL (8-26) Creatinine 1.1 mg/dL (0.7-1.3) Estimated GFR (Cockcroft-Gault) 64.4 BUN/Creatinine Ratio 18 (6-20) Glucose Level 113 mg/dL (70-99) H Lactic Acid Level 0.8 mmol/L (0.4-2.0) Calcium Level 8.0 mg/dL (8.5-10.1) L Total Bilirubin 0.4 mg/dL (0.2-1.0) Aspartate Amino Transferase (AST) 22 U/L (15-37) Alanine Aminotransferase (ALT) 25 U/L (16-63) Alkaline Phosphatase 73 U/L (46-116) Troponin I High Sensitivity 21 ng/L (4-75) Total Protein 6.9 g/dL (6.4-8.2) Albumin 3.5 g/dL (3.4-5.0) Albumin/Globulin Ratio 1.0 (1.0-1.7) Lipase 91 U/L (73-393) Laboratory Tests 06/16/21 10:40 Laboratory Tests 06/16/21 10:40 EKG EKG Atrial fibrillation, rate 94, no acute ST elevation or depression, EP interpretation. Radiology/Procedures Radiology/Procedures CT ABDOMEN+PELVIS W History: Right flank pain for 1.5 weeks. Comparison: CT abdomen and pelvis 08/01/2018 Technique: CT of the abdomen and pelvis with intravenous contrast. Findings: Coronary atherosclerotic calcification. Benign-appearing right major fissural 4 mm nodule. No pleural effusion or airspace consolidation. No hepatic masses. Mild intrahepatic biliary ductal dilatation and left pneumobilia status post cholecystectomy. The pancreas, spleen and adrenal glands are unremarkable. There is mild asymmetric right perinephric fat stranding. No hydronephrosis or nephrolithiasis. Bilateral benign renal cysts. The bladder is incompletely distended. Enlarged prostate gland. The stomach and small bowel are unremarkable. Normal appendix. No colonic wall thickening or pericolonic inflammatory changes. No intra-abdominal free air or free fluid. Atherosclerotic calcification of the aorta and iliac arteries without aneurysm. No adenopathy. Soft tissues are unremarkable. Levoconvex curvature of the lumbar spine with multilevel degenerative changes. Impression: 1. Mild right perinephric fat stranding asymmetric with the left is nonspecific, and may relate to chronic or acute findings. Correlate for pyelonephritis. No nephrolithiasis or hydronephrosis. 2. Intrahepatic biliary ductal dilatation and pneumobilia status post c holecystectomy. Correlate for history of sphincterotomy. 3. Enlarged prostate, correlate with exam. ------ Exposure: One or more of the following individualized dose reduction techniques were utilized for this examination: 1. Automated exposure control 2. Adjustment of the mA and/or kV according to patient size 3. Use of iterative reconstruction technique. Electronically signed by: Juan Manuel Ma MD (06/16/2021 12:05 PM) [id number] DICTATED and SIGNED BY: JUAN MANUEL MA MD DATE: 06/16/21 [id number] 0 Course & Med Decision Making Course & Med Decision Making Well-appearing 81-year-old male presenting for evaluation of 10 days of nonreproducible discomfort to the right flank worse with bending and twisting of the torso. No associated abdominal or groin pain. No dysuria or hematuria. Vital signs and clinical examination are reassuring. Suspect musculoskeletal etiology for symptoms given overall scenario but will rule out life threats with work-up as noted and will treat discomfort and will then reevaluate. 1244: Patient resting comfortably on serial reassessments, endorses significant improvement in his presenting discomfort following medication as per flowsheet here in the emergency department. Laboratory evaluation wholly unremarkable. CT imaging remarkable for minimal inflammatory stranding surrounding the right kidney, of uncertain chronicity and clinical significance. Urinalysis is entirely without evidence of infection, but given the location of patient's discomfort cannot exclude the possibility of an occult upper urinary tract infection. Will cover for this possibility with a course of cefdinir. Clinically, favor musculoskeletal etiology for symptoms as above and will treat with extra strength Tylenol and Lidoderm patches. Patient is to follow-up with primary in the next 1 to 2 days and understands that if he feels worse instead of better or develops other new symptoms of concern that he should return to the emergency department immediately for reevaluation. All questions were answered. Dragon Disclaimer Dragon Disclaimer This electronic medical record was generated, in whole or in part, using a voice recognition dictation system. Departure Departure Impression: Primary Impression: Acute right flank pain Disposition: HOME / SELF CARE / HOMELESS Condition: IMPROVED Referrals: DAVID LOVE MD (PCP) Patient Instructions: Flank Pain Additional Instructions: Follow-up very closely with your primary care doctor in the office in the next 1 to 2 days for a reevaluation of your symptoms and a discussion of next best steps in care. Take a 500 mg extra strength Tylenol pill every 6 hours as needed for discomfort. You may apply a Lidoderm patch once a day to the area that hurts as well to improve discomfort. Leave the Lidoderm patch in place for 12 hours, then remove it. The next day you may apply a new patch. You may ice the area that hurts intermittently through the day for about 20 minutes at a time. There was evidence of a little inflammation around your right kidney which could be reflective of urinary tract infection, although your urine testing was normal. We are prescribing an antibiotic called cefdinir to address the possibility of a urinary tract infection; take the cefdinir for the next 1 week as prescribed. Return to the emergency department right away for worsening symptoms of any kind or with any other new symptoms of concern. Scripts [lidoderm 5% patch] No Conflict Check 1 PATCH TOP DAILY for pain, #14 PATCH Prov: LILIA DILLON MD 06/16/21 Cefdinir (CEFDINIR) 300 Mg Capsule 1 CAP PO BID for 7 Days, #14 CAP Prov: LILIA DILLON MD 06/16/21 Acetaminophen (ACETAMINOPHEN) 500 Mg Tablet 1 TAB PO PRN Q6HRS PRN for pain or fever, #50 TAB 0 Refills Prov: LILIA DILLON MD 06/16/21 LILIA DILLON MD Jun 16, 2021 10:55
[2021-06-16 11:00] LABS: BILIRUBIN,URINE NEGATIVE (NEG); CLARITY,URINE CLEAR; COLOR,URINE YELLOW; NITRITE,URINE NEGATIVE (NEG); PH,URINE 6.5 (<5.0-8.0); PROTEIN,URINE NEGATIVE (NEG-TRACE); UROBILINOGEN,URINE 0.2 mg/dL (0.2 mg/dL)
[2021-06-16 11:06] LABS: BACTERIA,URINE 0 /HPF (0-FEW); RBC,URINE 0 /HPF (0-2); WBC,URINE 0 /HPF (0-4)
[2021-06-16 11:08] LABS: PROTHROMBIN TIME PATIENT 19.7 SEC (11.7-14.0)
--- NOTE | 2021-06-16 11:16 | EKG ---
[facility] [address] [place] [address] Test Date: 2021-06-16 Test Time: 11:04:25 Pat Name: BHARATH HERRERA Department: Room: Gender: M Pharmacy Associate: : [id number] Requested By: LILIA DILLON Order Number: [id number] Reading MD: Navid Frazier MD Measurements Intervals [place] Rate: 94 P: 0 AL: 228 QRS: -8 QRSD: 90 T: -17 QT: 384 QTc: 480 Interpretive Statements PROBABLE ATRIAL FIBRILLATION [id number] Electronically Signed On 06-20-2021 15:37:16 [facility]ISTANT TO THE DEAN by Navid Frazier MD
[2021-06-16 11:19] LABS: CREATININE 1.1 mg/dL (0.7-1.3); GFR 64.4; POTASSIUM 4.6 mmol/L (3.5-5.1)
[2021-06-16] MEDS ORDERED: IOHEXOL 300 MG/ML 100ML VIAL. IV ONE (11:30)
[2021-06-16] MEDS ORDERED: CONTRAST GIVEN. MC PRN (11:30)
[2021-06-16 11:34] LABS: ALBUMIN 3.5 g/dL (3.4-5.0); TOTAL BILIRUBIN 0.4 mg/dL (0.2-1.0); TOTAL PROTEIN 6.9 g/dL (6.4-8.2)
--- NOTE | 2021-06-16 12:07 | RAD ---
CT ABDOMEN+PELVIS W History: Right flank pain for 1.5 weeks. Comparison: CT abdomen and pelvis 08/01/2018 Technique: CT of the abdomen and pelvis with intravenous contrast. Findings: Coronary atherosclerotic calcification. Benign-appearing right major fissural 4 mm nodule. No pleural effusion or airspace consolidation. No hepatic masses. Mild intrahepatic biliary ductal dilatation and left pneumobilia status post randee cystectomy. The pancreas, spleen and adrenal glands are unremarkable. There is mild asymmetric right perinephric fat stranding. No hydronephrosis or nephrolithiasis. Bilateral benign renal cysts. The bl adder is incompletely distended. Enlarged prostate gland. The stomach and small bowel are unremarkable. Normal appendix. No colonic wall thickening or pericolo margarita inflammatory changes. No intra-abdominal free air or free fluid. Atherosclerotic calcification of the aorta and iliac arteries without aneurysm. No adenopathy. Soft tissues are unremarkable. Levocon vex curvature of the lumbar spine with multilevel degenerative changes. Impression: 1. Mild right perinephric fat stranding asymmetric with the left is nonspecific, and may relate to c hronic or acute findings. Correlate for pyelonephritis. No nephrolithiasis or hydronephrosis. 2. Intrahepatic biliary ductal dilatation and pneumobilia status post cholecystectomy. Correlate for history of sphincterotomy. 3. Enlarged prostate, correlate with exam. ------ Exposure: One or more of the following individualized dose reduction techniques were utilized for thi s examination: 1. Automated exposure control 2. Adjustment of the mA and/or kV according to patient size 3. Use of iterative reconstruction technique. Electronically signed by: Juan Manuel Ma MD (06/16/2021 12:05 PM) [id number]
[2021-06-16 12:36] VITALS: BP 108/61
[2021-06-16] MEDS ORDERED: lidoderm 5% patch TOP (12:53)
[2021-06-16] MEDS ORDERED: CEFD300C PO (12:53)
[2021-06-16] MEDS ORDERED: ACET500T68 PO (12:53)
== END 2021-06-16 13:05 | disposition home or self-care (01) ==
LOC: ER 10:03
DX: R10.9 Unspecified abdominal pain (principal); I48.91 Unspecified atrial fibrillation; F41.9 Anxiety disorder, unspecified; E11.9 Type 2 diabetes mellitus without complications; K21.9 Gastro-esophageal reflux disease without esophagitis; E78.00 Pure hypercholesterolemia, unspecified; I10 Essential (primary) hypertension; Z87.891 Personal history of nicotine dependence; Z90.49 Acquired absence of other specified parts of digestive tract; Z88.6 Allergy status to analgesic agent
CPT/HCPCS: 36415; 74177; 80053; 81001; 83605; 83690; 84484; 85025; 85610; 85730; 93005; 96361; 96374; 99285; J3010; J7030; Q9967

== ENCOUNTER 2021-08-10 09:00 | Emergency (ER) | payer MEDICARE ==
[~2021-08-10] VITALS: Ht 182.9 cm; Wt 104.3 kg
[~2021-08-10 09:00] MED LIST changes: +ACET500T68 PO; +CEFD300C PO; +lidoderm 5% patch TOP
--- NOTE | 2021-08-10 09:48 | PHYS DOC ---
Past Medical History Past Medical History: A-Fib, Anxiety, Cancer, Diabetes-Type II, GERD, High Cholesterol, Hypertension, Other Additional Past Medical Histor: LEUKEMIA Past Surgical History: No Surgical History Additional Past Surgical Histo: I&D; left knee Smoking Status: Never Smoker Alcohol Use: None Drug Use: None General Adult EDM: Chief Complaint: MECHANICAL FALL HPI: HPI: Patient is an 81-year-old male that presents today with left shoulder pain after a fall. Patient states that on Sunday he was on his deck and tripped over his feet and fell landing on his left side, he said since that time he has had left- sided shoulder, rib, and left knee pain. Patient states he did not hit his head or did not have a loss of consciousness, he was able to get up and move around he said that his shoulder he is bothering him the most since he has decreased range of motion in that, he also states that he is on Xarelto on a regular basis due to his heart condition, he also has a history of leukemia. Patient states he is up-to-date on his tetanus. Review of Systems: Review of Systems: Constitutional: Denies fever or chills. [] Eyes: Denies change in visual acuity. [] HENT: Denies nasal congestion or sore throat. [] Respiratory: Denies cough or shortness of breath. [] Cardiovascular: Denies chest pain or edema. [] GI: Left flank abdominal pain denies abdominal pain, nausea, vomiting, bloody stools or diarrhea. [] : Denies dysuria. [] Musculoskeletal: Left shoulder pain and left knee pain denies back pain or joint pain. [] Integument: Denies rash. [] Neurologic: Denies headache, focal weakness or sensory changes. [] Endocrine: Denies polyuria or polydipsia. [] Lymphatic: Denies swollen glands. [] Psychiatric: Denies depression or anxiety. [] Heart Score: C/O Chest Pain: No Risk Factors: Risk Factors: DM, Current or recent (<one month) smoker, HTN, HLP, family history of CAD, obesity. Risk Scores: Score 0 - 3: 2.5% MACE over next 6 weeks - Discharge Home Score 4 - 6: 20.3% MACE over next 6 weeks - Admit for Clinical Observation Score 7 - 10: 72.7% MACE over next 6 weeks - Early Invasive Strategies Allergies: Allergies: Allergies Coded Allergies Type Severity Reaction Last Updated Verified acetaminophen Allergy Intermediate 08/10/21 Yes Physical Exam: PE: Constitutional: Well developed, well nourished, mild distress, non-toxic appearance. [] HENT: Normocephalic, atraumatic, bilateral external ears normal, oropharynx moist, no oral exudates, nose normal. [] Eyes: PERRLA, EOMI, conjunctiva normal, no discharge. [] Neck: Normal range of motion, no tenderness, supple, no stridor, no midline tenderness Cardiovascular:Heart rate regular rhythm, no murmur [] Lungs & Thorax: Palpation over the chest wall patient had some pain over the left side, no crepitus or subcutaneous air at this time, no lacerations, abrasions, contusions,'s or ecchymosis noted bilateral breath sounds clear to auscultation [] Abdomen: Palpation over the abdomen patient was tender over the left flank area, no palpable masses noted, bowel sounds are hypoactive, no lacerations, abrasions, contusions,'s or ecchymosis noted Skin: Warm, dry, no erythema, no rash. [] Back: No midline tenderness in the back there is tenderness over the left posterior chest wall and left flank area, no lacerations, abrasions, contusions,'s or ecchymosis noted, patient had no step-offs or deformities noted in the spinal area Extremities: Left shoulder limited range of motion due to pain, deformity noted to the left shoulder, radial pulse in the left arm is 2+ with sensory is intact distal to the injury patient has adequate range of motion of the left shoulder and left wrist with no pain. Left knee is tender to touch, abrasions noted over the anterior portion of the knee, range of motion is within normal limits, dorsalis pedis pulses 2+ with cap refill less than 2-second Neurologic: Alert and oriented X 3, normal motor function, normal sensory function, no focal deficits noted. [] Psychologic: Affect normal, judgement normal, mood normal. [] Current Patient Data: Labs: Laboratory Tests Test 08/10/21 10:05 08/10/21 10:28 08/10/21 11:02 White Blood Count 8.2 x10^3/uL Red Blood Count 3.28 x10^6/uL Hemoglobin 10.8 g/dL Hematocrit 31.6 % Mean Corpuscular Volume 96 fL Mean Corpuscular Hemoglobin 33 pg Mean Corpuscular Hemoglobin Concent 34 g/dL Red Cell Distribution Width 15.0 % Platelet Count 211 x10^3/uL Neutrophils (%) (Auto) 68 % Lymphocytes (%) (Auto) 20 % Monocytes (%) (Auto) 8 % Eosinophils (%) (Auto) 3 % Basophils (%) (Auto) 1 % Neutrophils # (Auto) 5.6 x10^3/uL Lymphocytes # (Auto) 1.6 x10^3/uL Monocytes # (Auto) 0.7 x10^3/uL Eosinophils # (Auto) 0.2 x10^3/uL Basophils # (Auto) 0.1 x10^3/uL Sodium Level 137 mmol/L Potassium Level 4.2 mmol/L Chloride Level 106 mmol/L Carbon Dioxide Level 25 mmol/L Anion Gap 6 Blood Urea Nitrogen 19 mg/dL Creatinine 1.2 mg/dL Estimated GFR (Cockcroft-Gault) 58.3 BUN/Creatinine Ratio 16 Glucose Level 123 mg/dL Calcium Level 8.5 mg/dL Total Bilirubin 0.3 mg/dL Aspartate Amino Transf (AST/SGOT) 27 U/L Alanine Aminotransferase (ALT/SGPT) 20 U/L Alkaline Phosphatase 63 U/L Troponin I High Sensitivity 23 ng/L Total Protein 6.5 g/dL Albumin 3.7 g/dL Albumin/Globulin Ratio 1.3 Urine Collection Type Unknown Urine Color Yellow Urine Clarity Clear Urine pH 5.5 Urine Specific [place] 1.020 Urine Protein Negative mg/dL Urine Glucose (UA) Negative mg/dL Urine Ketones (Stick) Negative mg/dL Urine Blood Negative Urine Nitrite Negative Urine Bilirubin Negative Urine Urobilinogen Dipstick 0.2 mg/dL Urine Leukocyte Esterase Negative Urine RBC 0 /HPF Urine WBC 0 /HPF Urine Bacteria 0 /HPF Prothrombin Time 20.3 SEC Prothromb Time International Ratio 1.8 Activated Partial Thromboplast Time 39 SEC Current Medications Medications (Trade) Dose Ordered Sig/Dragan Route PRN Reason Start Time Stop Time Status Last Admin Dose Admin Iohexol (Omnipaque 300 Mg/ml) 75 ml 1X ONCE IV 08/10/21 10:45 08/10/21 10:46 DC 08/10/21 11:12 Info (CONTRAST GIVEN -- Rx MONITORING) 1 each PRN DAILY PRN MC SEE COMMENTS 08/10/21 10:45 08/12/21 10:44 Vital Signs: Vital Signs Date Time Temp Pulse Resp B/P (MAP) Pulse Ox O2 Delivery O2 Flow Rate FiO2 08/10/21 11:02 96 16 105/69 (81) 100 08/10/21 09:40 100 14 110/62 (78) 100 08/10/21 09:11 98 14 133/75 (94) 100 08/10/21 09:04 98.1 106 16 133/75 (94) 100 Room Air 98.1 Vital Signs Date Time Temp Pulse Resp B/P (MAP) Pulse Ox O2 Delivery O2 Flow Rate FiO2 08/10/21 09:04 98.1 106 16 133/75 (94) 100 Room Air 98.1 EKG: EKG: EKG done at [address] Arzate at 1015 shows atrial fibrillation with a right bundle branch block no ectopy no STEMI at a rate of 109 with a QTC of 473. [] Radiology/Procedures: Radiology/Procedures: REASON: fall and rib pain PROCEDURE: SHOULDER 2+V LEFT EXAM: Left shoulder, 3 views. HISTORY: Fall. Pain. COMPARISON: None. FINDINGS: 3 views of the left shoulder obtained. There is no acute fracture, dislocation or subluxation. There are corticated ossicles adjacent to the superior aspect of the distal clavicle, likely due to chronic fragmented spurs. There is degenerative change involving the visualized cervical spine. IMPRESSION: No acute osseous finding. Electronically signed by: Clarisa Naranjo MD (08/10/2021 10:45 AM) [id number] REASON: fall STARTING IV @955 PROCEDURE: KNEE LEFT 4V EXAM: Left knee, 4 views. HISTORY: Pain. Fall. COMPARISON: None. FINDINGS: 4 views of the left knee are obtained. There are 3 fixation screws within the proximal tibial metaphysis, likely due to prior lateral tibial plateau fracture internal fixation. There is lateral compartment predominant joint space narrowing, subchondral sclerosis and spurring. There is medial and lateral compartment chondrocalcinosis. There is genu valgus. There are joint loose bodies. There is a small joint effusion. There are vascular calcific ations. There is heterotopic ossification along the calf, partially included on the [id number]. IMPRESSION: 1. Moderate to severe lateral compartment predominant osteoarthritis of the left knee. 2. Small left knee effusion and multiple joint loose bodies. 3. Left genu valgus. 4. Internal fixation of a suspected healed lateral tibial plateau fracture. Electronically signed by: Clarisa Naranjo MD (08/10/2021 10:47 AM) [id number] REASON: fall and rib pain PROCEDURE: CHEST AP ONLY EXAM: Chest, single view. HISTORY: Fall. Pain. COMPARISON: 01/08/2018 FINDINGS: A frontal view of the chest is obtained. There is no infiltrate, pleural effusion or pneumothorax. The heart is normal in size. IMPRESSION: No acute pulmonary finding. Electronically signed by: Clarisa Naranjo MD (08/10/2021 10:43 AM) [id number] [] Course & Med Decision Making: Course & Med Decision Making Pertinent Labs and Imaging studies reviewed. (See chart for details) 1230 spoke to patient at length regarding his radiological and laboratory results, did inform him that his left shoulder did not show any acute dislocation or any acute process at this time but I cannot state at this time if there is ligamental injuries, he was informed that he has a left rib fracture and that we will treat him on an outpatient basis with incentive spirometer and pain medications for that, his right knee we will place a Freedom wrap because at this time he does not want a knee immobilizer and will have him follow-up with his primary care physician or the orthopedic doctor on-call Dr. Cooper for fur ther medical management of his left shoulder and left knee injuries. Patient at this time does not want any opioid medications for pain, he states he has Tylenol at home, I did inform him to ice those affected areas 20 minutes on 3-4 times daily use the left arm sling as needed for comfort, Freedom wrap or a [id number] knee brace to help with knee pain and to follow-up. Patient verbalized understanding of this and is agreeable to the plan of care, patient was given strict return precautions. Dragon Disclaimer: Dragon Disclaimer: This electronic medical record was generated, in whole or in part, using a voice recognition dictation system. Departure Departure Impression: Primary Impression: Fall Qualified Codes: W19.XXXA - Unspecified fall, initial encounter Additional Impressions: Left shoulder strain Qualified Codes: S46.912A - Strain of unspecified muscle, fascia and tendon at shoulder and upper arm level, left arm, initial encounter Left knee sprain Qualified Codes: S83.92XA - Sprain of unspecified site of left knee, initial encounter Abrasion Rib fracture Qualified Codes: S22.32XA - Fracture of one rib, left side, initial encounter for closed fracture Disposition: HOME / SELF CARE / HOMELESS Condition: STABLE Referrals: DAVID LOVE MD (PCP) XAVI GEIGER II, MD Patient Instructions: Abrasions, Knee Sprain, Rib Fracture, Shoulder Pain Additional Instructions: Ice to the affected areas 20 minutes on 4-5 times daily to help with localized pain and swelling Wear arm sling for the left shoulder pain as needed for discomfort and support Freedom wrap to the left knee or an [id number] knee brace to help with support Keep abrasions clean and dry watch for any signs and symptoms of infection Incentive spirometer 4-5 times daily to help prevent pneumonia [id number]-wun-[id number] Tylenol as labeled directed for pain Return to the emergency department for increase shortness of breath, increased chest pain, development of a fever, increased pain in her knee or shoulder, or any other concerns you may have Follow-up with your primary care physician in 1 week Follow-up with Dr. Geiger the orthopedic physician in the next 5 to 7 days for further management of your left shoulder and left knee issues. NENITA MTZ APRN Aug 10, 2021 09:48
[2021-08-10 10:24] LABS: BASO # 0.1 x10^3/uL (0.0-0.2); BASO % 1 % (0-3); EOS # 0.2 x10^3/uL (0.0-0.7); EOS % 3 % (0-3); HEMATOCRIT 31.6 % (39.0-53.0); HEMOGLOBIN 10.8 g/dL (13.0-17.5); LYMPH # 1.6 x10^3/uL (1.0-4.8); LYMPH % 20 % (24-48); MEAN CORPUSCULAR HEMOGLOBIN 33 pg (25-35); MEAN CORPUSCULAR HGB CONC 34 g/dL (31-37); MEAN CORPUSCULAR VOLUME 96 fL (79-100); MONO # 0.7 x10^3/uL (0.0-1.1); MONO % 8 % (0-9); NEUT # 5.6 x10^3/uL (1.8-7.7); NEUT % 68 % (31-73); PLATELET COUNT 211 x10^3/uL (140-400); RED BLOOD COUNT 3.28 x10^6/uL (4.30-5.70); WHITE BLOOD COUNT 8.2 x10^3/uL (4.0-11.0)
[2021-08-10 10:29] LABS: CALCIUM 8.5 mg/dL (8.5-10.1); CREATININE 1.2 mg/dL (0.7-1.3); GFR 58.3; POTASSIUM 4.2 mmol/L (3.5-5.1)
[2021-08-10 10:34] LABS: ALBUMIN 3.7 g/dL (3.4-5.0); ALBUMIN/GLOBULIN RATIO 1.3 (1.0-1.7); TOTAL BILIRUBIN 0.3 mg/dL (0.2-1.0); TOTAL PROTEIN 6.5 g/dL (6.4-8.2)
[2021-08-10] MEDS ORDERED: IOHEXOL 300 MG/ML 100ML VIAL. IV ONE (10:45)
[2021-08-10] MEDS ORDERED: CONTRAST GIVEN. MC PRN (10:45)
--- NOTE | 2021-08-10 10:46 | RAD ---
EXAM: Chest, single view. HISTORY: Fall. Pain. COMPARISON: 01/08/2018 FINDINGS: A frontal view of the chest is obtained. There is no infiltrate, pleural effusion or pneumo thorax. The heart is normal in size. IMPRESSION: No acute pulmonary finding. Electronically signed by: Clarisa Naranjo MD (08/10/2021 10:43 AM) [id number]
--- NOTE | 2021-08-10 10:48 | RAD ---
EXAM: Left shoulder, 3 views. HISTORY: Fall. Pain. COMPARISON: None. FINDINGS: 3 views of the left shoulder obtained. There is no acute fracture, dislocation or subluxati on. There are corticated ossicles adjacent to the superior aspect of the distal clavicle, likely due to chronic fragmented spurs. There is degenerative change involving the visualized cervical spine. IMPRESSION: No acute osseous finding. Electronically signed by: Clarisa Naranjo MD (08/10/2021 10:45 AM) [id number]
--- NOTE | 2021-08-10 10:49 | RAD ---
EXAM: Left knee, 4 views. HISTORY: Pain. Fall. COMPARISON: None. FINDINGS: 4 views of the left knee are obtained. There are 3 fixation screws within the proximal tibi al metaphysis, likely due to prior lateral tibial plateau fracture internal fixation. There is latera l compartment predominant joint space narrowing, subchondral sclerosis and spurring. There is medial and lateral compartment chondrocalcinosis. There is genu valgus. There are joint loose bodies. There is a small joint effusion. There are vascular calcifications. There is heterotopic ossification along the calf, partially included on the [id number]-yx-hacw. IMPRESSION: 1. Moderate to severe lateral compartment predominant osteoarthritis of the left knee. 2. Small left knee effusion and multiple joint loose bodies. 3. Left genu valgus. 4. Internal fixation of a suspected healed lateral tibial plateau fracture. Electronically signed by: Clarisa Naranjo MD (08/10/2021 10:47 AM) [id number]
[2021-08-10 11:02] VITALS: BP 105/69
[2021-08-10 11:14] LABS: CLARITY,URINE CLEAR; COLOR,URINE YELLOW
[2021-08-10 11:15] LABS: BACTERIA,URINE 0 /HPF (0-FEW); BILIRUBIN,URINE NEGATIVE (NEG); NITRITE,URINE NEGATIVE (NEG); PH,URINE 5.5 (<5.0-8.0); PROTEIN,URINE NEGATIVE (NEG-TRACE); RBC,URINE 0 /HPF (0-2); UROBILINOGEN,URINE 0.2 mg/dL (0.2 mg/dL); WBC,URINE 0 /HPF (0-4)
[2021-08-10 11:33] LABS: PROTHROMBIN TIME PATIENT 20.3 SEC (11.7-14.0)
--- NOTE | 2021-08-10 11:36 | RAD ---
CT CHEST+ABD+PELVIS W History: Fall. Left flank pain. Comparison: CT abdomen and pelvis 06/16/2021 Technique: CT of the chest, abdomen and pelvis with intravenous contrast. Findings: Chest: Pulmonary arteries: Unremarkable. Aorta and great vessels: No aneurysm of the aortic arch or thoracic aorta is seen. Mild atherosclerot ic calcification. Heart: The heart is normal in size. There is no pericardial effusion. Heavy coronary artery calcifica tion. Thyroid: No significant abnormalities. Mediastinum and emerson: No mediastinal masses or adenopathy is seen. Esophagus: The visualized esophagus is normal. Airways, Lungs, Pleura: Small left pleural effusion. No pneumothorax. No airspace consolidation. 4 mm right major fissural nodule, likely benign lymph node. Soft tissue and osseous: Mild irregularity at the left lateral 10th rib suspect nondisplaced fracture . Mild degenerative changes in the thoracic spine. Abdomen/Pelvis: General abdomen: No ascites. No free air. Liver : Normal in size and attenuation. No masses seen. Gallbladder/Biliary Tree: Status post cholecystectomy. Redemonstrated left pneumobilia similar to com parison. Pancreas: Normal. Spleen: Normal in size and attenuation. Adrenal glands: Normal. Kidneys: No hydronephrosis or hydroureter. Bilateral benign renal cysts. Gastrointestinal: Unremarkable. Lymph nodes: No lymphadenopathy. Vessels: Atherosclerotic calcification the aorta and iliac arteries. Pelvic Organs: Enlarged prostate. The bladder is unremarkable. Soft tissues: Unremarkable. Bones: Multilevel degenerative changes in the lumbar spine. No acute osseous abnormality. Impression: 1. Small left pleural effusion with suspected nondisplaced lateral left 10th rib fracture. No pneumo thorax. 2. No acute findings in the abdomen and pelvis. 3. Additional redemonstrated findings including heavy coronary artery calcification and enlarged pro state. ------ Exposure: One or more of the following individualized dose reduction techniques were utilized for thi s examination: 1. Automated exposure control 2. Adjustment of the mA and/or kV according to patient size 3. Use of iterative reconstruction technique. Electronically signed by: Juan Manuel Ma MD (08/10/2021 11:34 AM) [id number]
--- NOTE | 2021-08-10 18:06 | EKG ---
[facility] [address] [place] [address] Test Date: 2021-08-10 Test Time: 10:13:09 Pat Name: BHARATH HERRERA Department: Room: Gender: M Certified Nurse Aide: : 1940 Requested By: NENITA MTZ Order Number: [id number] Reading MD: Measurements Intervals [place] Rate: 109 P: GA: QRS: -9 QRSD: 82 T: -11 QT: 350 QTc: 473 Interpretive Statements IRREGULAR RHYTHM, NO P-WAVE FOUND LEFTWARD AXIS R-S TRANSITION ZONE IN V LEADS DISPLACED TO THE RIGHT ST ABNORMALITY, POSSIBLE HIGH LATERAL SUBENDOCARDIAL INJURY ABNORMAL ECG RI6.02 No previous ECG available for comparison
== END 2021-08-10 13:20 | disposition home or self-care (01) ==
LOC: ER 09:00
DX: S22.32XA Fracture of one rib, left side, initial encounter for closed fracture (principal); S83.92XA Sprain of unspecified site of left knee, initial encounter; S46.912A Strain of unspecified muscle, fascia and tendon at shoulder and upper arm level, left arm, initial encounter; I48.91 Unspecified atrial fibrillation; E11.9 Type 2 diabetes mellitus without complications; K21.9 Gastro-esophageal reflux disease without esophagitis; E78.00 Pure hypercholesterolemia, unspecified; I10 Essential (primary) hypertension; W01.0XXA Fall on same level from slipping, tripping and stumbling without subsequent striking against object, initial encounter; Y93.89 Activity, other specified; Y92.89 Other specified places as the place of occurrence of the external cause; Y99.8 Other external cause status
CPT/HCPCS: 36415; 71045; 71260; 73030; 73564; 74177; 80053; 81001; 84484; 85025; 85610; 85730; 93005; 99285; Q9967